=== PATIENT | female | born 1965 | race Caucasian/White ===

== ENCOUNTER → 2016-05-20 | Outpatient (CLI) | payer BC ==
[2016-05-20 09:49] LABS: FREE T4 (FREE THYROXINE) 0.72 ng/dL (0.93-1.71)
== END ==
LOC: LAB 07:17
PROVIDERS: ATTEND Family Medicine
DX: E06.3 Autoimmune thyroiditis (principal); E03.9 Hypothyroidism, unspecified
CPT/HCPCS: 36415; 84439; 84443; 84481

== ENCOUNTER 2016-06-23 13:45 | Observation (INO) | payer BC ==
[2016-06-23] MEDS ORDERED: MORPHINE SULFATE 4 MG/1 ML IVP ONE (13:59)
[2016-06-23] MEDS ORDERED: Sodium Chloride 0.9% 1,000 ML PRIMARY IV ONE (13:59)
[2016-06-23] MEDS ORDERED: ONDANSETRON 4 MG/2 ML VIAL IVP ONE (13:59)
[2016-06-23] MEDS ORDERED: NITROGLYCERIN 0.4 MG SL TAB (BOTTLE OF 3) SL ONE (14:01)
--- NOTE | 2016-06-23 14:05 | PDOC ---
Chest Pain HPI - General Chief Complaint: Chest Pain Stated Complaint: CHEST PAIN Date Seen by Provider: 06/23/16 Time Seen by Provider: 14:01 Source: Patient Exam Limitations: POSITIVE: No limitations Treatment Prior to Arrival: REPORTS: None Nurse's Notes Reviewed & Considered: Yes - History of Present Illness Initial Comments: Patient comes in today with chest pain. Patient reports she developed chest pain that she describes as pressure. This pressure was centered over her left substernal region, and is now radiating into her shoulder and neck. The pressure is though something heavy is sitting on her chest. She has associated shortness of breath. She denies any diaphoresis, no nausea vomiting or diarrhea , no fever chills or sweats. She states that her symptoms are worse with trying to move and be active, they do not resolve at this time when she rests. Body Location Affected: REPORTS: Chest Timing: REPORTS: Abrupt Duration: <24 hours Severity: Moderate Context: REPORTS: Activity Quality: REPORTS: Pressure Radiation: REPORTS: Jaw (L), Shoulder (L) Associated Symptoms: REPORTS: Shortness of Breath, Hurts to Breathe Modifying Factors: improves with: Rest Similar Symptoms Previously: No Recently seen/treated/hospitalized: No Any Prior Injuries Related to Current Complaint?: No - Patient Home Medications Home Medications: Home Medications Valacyclovir HCl [Valtrex] 1,000 mg PO BID #6 tab 09/25/14 Fenofibrate [Tricor] 145 mg PO DAILY #30 tab 08/15/15 Hydrochlorothiazide 25 mg PO DAILY #30 tab 09/17/15 Omeprazole 1 cap PO DAILY #90 cap 10/01/15 Gabapentin 1 cap PO as directed #360 cap 10/16/15 Acyclovir 2 tab PO QAM #60 tab 12/26/15 Quetiapine Fumarate [Seroquel] 200 mg PO QHS #60 tab 04/30/16 Oseltamivir Phosphate [Tamiflu] 75 mg PO DAILY #10 cap 05/05/16 Levothyroxine Sodium [Synthroid] 1 tab PO DAILY #30 tab 05/21/16 Venlafaxine HCl [Venlafaxine Hcl Er] 150 mg PO DAILY #30 cap 06/07/16 - Patient Allergies Allergies/Adverse Reactions: Allergies Allergy/AdvReac Type Severity Reaction Status Date / Time No Known Drug Allergies Allergy NOT Verified 06/23/16 13:59 APPLICABLE Past Medical History - heen HEENT History: Denies History Cardiovascular History: Denies History Respiratory History: Denies History Gastrointestinal History: Denies History, GERD Genitourinary History: Denies History Endocrine History: Other (please comment) Additional Endocrine History: MITESH'S THYROIDITIS Musculoskeletal History: Denies History Neurological History: Denies History, Motion Sickness Blood Disorders: Denies History Psychiatric History: Denies History, Depression Cancer History: Denies History History of MDRO: No Alcohol Use: Rarely Substance Use Type: None Previous Surgical History: Yes (tubal ligation) Significant Family History: No pertinent family hx, Hypertension ROS - Limitations ROS Limitations: No Limitations Constitution: REPORTS: Denies Symptoms Cardiovascular: REPORTS: Chest Pain Respiratory: REPORTS: Shortness Of Breath Neurological: REPORTS: Denies Neuro Symptoms Gastrointestinal: REPORTS: Denies GI Symptoms Endocrine: REPORTS: Denies Symptoms Musculoskeletal: REPORTS: Denies MS Symptoms Genitourinary: REPORTS: Denies Symptoms Eyes: REPORTS: Denies Symptoms ENT: REPORTS: Denies Symptoms Skin: REPORTS: Denies Skin Symptoms Lympathic: REPORTS: Denies Lympathic Symptoms Immunologic: POSITIVE: Denies Symptoms Psychiatric: POSITIVE: Denies Psych Symptoms Chest Pain PE - General Appearance General Appearance: REPORTS: Alert, Cooperative, No Evidence of Trauma, Mild Distress - HEENT HEENT: POSITIVE: Head Inspection Nml, Eyes Inspection Nml, Ears Inspection Nml, Nose Inspection Nml, Oral/Dental Inspect. Nml, Pharynx Inspect. Nml, PERRL, EOMI - Neck Neck: REPORTS: Normal Inspection - Respiratory Respiratory: REPORTS: No Respiratory Distress, Breath Sounds Normal, Chest Non- Tender - Cardiovascular Cardiovascular: REPORTS: Regular Rate and Rhythm, Heart Sounds Normal, No Murmur , No Gallop, No Friction Rub, No JVD - Abdomen Abdomen: Soft: (All Quadrants), Normal Bowel Sounds: (All Quadrants), Denies Tenderness: (All Quadrants) - Skin Skin: REPORTS: Intact, Normal For Race, Warm, Dry, No Rash - Extremities Extremity: Non-Tender: (All Extremities), Normal ROM: (All Extremities), Normal Inspection: (All Extremities) - Neurological / Psychological Neurological: POSITIVE: Affect Apporpriate, Oriented X3 Chest Pain Progress - Results Reviewed by me Xrays/CTs/US Reviewed by me: Yes Discussed with Radiologist: Yes Lab Results Reviewed: Yes Lab Results:: Laboratory Results 06/23/16 Range/Units 14:05 WBC 6.63 (4.8-10.8) 10^3/uL RBC 4.49 (4.20-5.40) 10^6/uL Hgb 10.7 L (12.0-16.0) g/dL Hct 34.1 L (37.0-47.0) % MCV 75.9 L (81-99) FL MCH 23.8 L (27-31) PG MCHC 31.4 L (33-37) g/dL RDW Std Deviation 45.0 (39-50) fL RDW Coeff of Gris 16.7 H (11.5-14.5) % Plt Count 415 H (140-350) 10*3/uL MPV 9.3 (7.4-12.2) FL Immature Gran % (Auto) 0.2 (0-5) % Neut % (Auto) 64.2 (50-80) % Lymph % (Auto) 23.4 (10-50) % [place] % (Auto) 9.0 (5-15) % Eos % (Auto) 2.6 (0-8) % Baso % (Auto) 0.6 (0-1) % Immature Gran # (Auto) 0.01 10*3/UL Neut # (Auto) 4.26 10*3/UL Lymph # (Auto) 1.55 10*3/uL [place] # (Auto) 0.60 (0.3-0.8) 10*3/UL Eos # (Auto) 0.17 10*3/UL Baso # (Auto) 0.04 10*3/UL WBC Morphology Comment Normal morphology (NORM) Plt Morphology Comment Normal morphology (NORM) RBC Morph Comment Normal morphology (NORM) PT 10.6 (9.7-11.4) secs INR 1.03 (0.00-5.90) N/A D-Dimer 0.26 (0.00-0.59) mg/L Sodium 136 (135-145) meq/L Potassium 3.4 L (3.8-5.2) meq/L Chloride 97 L (98-112) meq/L Carbon Dioxide 26 (23-33) meq/L Anion Gap 13 (5-20) BUN 21 (7-22) mg/dL Creatinine 1.2 (0.50-1.20) mg/dL Estimated GFR 48 (>60 ml/min/1.73m(2)) BUN/Creatinine Ratio 17.50 (6-20) Glucose 95 (78-110) mg/dL Calculated Osmolality 284.0 (267-292) mOsm/kg Calcium 9.3 (8.7-10.7) mg/dL Magnesium 2.1 (1.6-2.4) mg/dL Total Bilirubin 0.4 (0.3-1.2) mg/dL AST 51 H (8-39) IU/L ALT 35 (9-52) IU/L Alkaline Phosphatase 47 (38-126) IU/L Troponin I < 0.012 (< 0.040) ng/mL NT-Pro-B Natriuret Pep < 11.1 (0-125) PG/ML Total Protein 7.9 (6.1-8.0) g/dL Albumin 4.3 (3.5-4.8) g/dL Globulin 3.6 (2.50-4.10) g/dL Albumin/Globulin Ratio 1.10 L (1.3-2.0) mg/g TSH 0.028 L (0.2700-4.2000) uIU/mL Free T4 0.88 L (0.93-1.71) ng/dL EKG Interpretation:: POSITIVE: Normal Sinus Rhythm, Normal Rate, Normal Intervals, Normal [place], Normal QRS, Normal ST/T - Patient's Progress Pain Medication Addressed: POSITIVE: Yes Re-Examine Time: 15:12 Status: POSITIVE: Improved MDM / ED Course: Patient was brought back to the main emergency room, examined, an IV established , blood drawn and sent to the lab for studies, radiographic studies were obtained. Patient received sublingual nitroglycerin resulted in improvement of her chest pressure. She also received morphine sulfate, normal saline, and Zofran per her IV. She'll return of chest pain that she described as pressure received a second sublingual nitroglycerin resulted in improvement of her chest pressure. Findings: Chest x-ray is unremarkable. CBC shows anemia with a hemoglobin of 10.5. Comprehensive metabolic panel is unremarkable. D-dimer is normal. Troponin is less than 0.012. Assessment: Chest pain. Plan: admission for rule out OK. Quality Measure Initiative: CP/AMI: POSITIVE: EKG Quality Measure Initiative: CAP: POSITIVE: CXR or CT - Consult Consult (If Yes, Name of Consulting MD & Time Called): Yes (Dr. Maki) Consulting MD will see pt:: POSITIVE: [facility] [place] Ad[place] Counseled: POSITIVE: Patient, RE: Lab Results, RE: Radiology Results, RE: DX Patient Care Time - Estimated PCT Patient Care Time (In Minutes): 30 Vital Signs - VS Reviewed Vital Signs Reviewed: Yes Discharge Clinical Impression: Chest pain Discharge Disposition: Admit to Inpatient Condition: Stable Date Decision to Admit to Inpatient: 06/23/16 Time Decision to Admit to Inpatient: 15:11
[2016-06-23] MEDS: NITROGLYCERIN 0.4 MG SL TAB (BOTTLE OF 3) SL ONE ×2 (14:07→15:02)
[2016-06-23 14:11] LABS: BASOPHILS # (AUTO) 0.04 10*3/UL; BASOPHILS % (AUTO) 0.6 % (0-1); EOSINOPHILS # (AUTO) 0.17 10*3/UL; EOSINOPHILS % (AUTO) 2.6 % (0-8); HEMATOCRIT 34.1 % (37.0-47.0); HEMOGLOBIN 10.7 g/dL (12.0-16.0); LYMPHOCYTES # (AUTO) 1.55 10*3/uL; MEAN CORPUSCULAR HEMOGLOBIN 23.8 PG (27-31); MEAN CORPUSCULAR HGB CONC 31.4 g/dL (33-37); MEAN CORPUSCULAR VOLUME 75.9 FL (81-99); MEAN PLATELET VOLUME 9.3 FL (7.4-12.2); NEUTROPHILS # (AUTO) 4.26 10*3/UL; NEUTROPHILS % (AUTO) 64.2 % (50-80); RED BLOOD COUNT 4.49 10^6/uL (4.20-5.40)
[2016-06-23 14:12] LABS: PLATELET MORPHOLOGY COMMENT NORMAL MORPHOLOGY (NORM); RBC MORPHOLOGY COMMENT NORMAL MORPHOLOGY (NORM); WBC MORPHOLOGY COMMENT NORMAL MORPHOLOGY (NORM)
--- NOTE | 2016-06-23 14:23 | DI ---
AP CHEST X-RAY, 06/23/2016 2:01 PM : Clinical History: Chest pain. Previous Exam: 10/16/2014. There is no acute soft tissue or bony abnormality. Heart size is normal. Lungs are clear. Mediastinal structures are normal. There are no pulmonary nodules. Reading: Normal chest x-ray. There has been no interval change.
[2016-06-23 14:24] LABS: BUN/CREATININE RATIO 17.5 (6-20); CALCIUM 9.3 mg/dL (8.7-10.7); MAGNESIUM 2.1 mg/dL (1.6-2.4); SERUM ALBUMIN 4.3 g/dL (3.5-4.8)
[2016-06-23 14:51] LABS: FREE T4 (FREE THYROXINE) 0.88 ng/dL (0.93-1.71)
[2016-06-23] MEDS ORDERED: Belladon/PHENobarbital Elixir 10 ML, Lidocaine Viscous Liquid 2% 15 ML, Mag Hyd/Al Hyd/... PO ONE ×3 (15:02)
[2016-06-23] MEDS ORDERED: BELLADONNA ALKALOIDS/PHENOBARB 32.4 MG/10 ML PO ONE (15:05)
[2016-06-23] MEDS ORDERED: LIDOCAINE 2% VISCOUS(20 MG/1 ML) - 15 ML UD CUP PO ONE (15:05)
[2016-06-23] MEDS ORDERED: MAG HYDROX/AL HYDROX/SIMETH 30 ML SUSP PO ONE (15:05)
[2016-06-23] MEDS: ACETAMINOPHEN 500 MG TABLET PO ONE ×2 (15:25→16:45)
[2016-06-23] MEDS ORDERED: NORMAL SALINE 10 ML SYRINGE FLUSH IVP PRN (15:42)
[2016-06-23] MEDS ORDERED: CALCIUM CARBONATE 500 MG (TUMS) CHEWABLE TABLET PO PRN (15:42)
[2016-06-23] MEDS ORDERED: NITROGLYCERIN 0.4 MG SL TAB (BOTTLE OF 3) SL PRN (15:42)
[2016-06-23] MEDS ORDERED: LIDOCAINE W/ SODIUM BICARB 0.5 ML SYR SUBD PRN (15:42)
--- NOTE | 2016-06-23 16:57 | EKG ---
[address] [place] [address] Measurements Intervals [place] Rate: 60 P: 55 AR: 211 QRS: 56 QRSD: 100 T: 82 QT: 438 QTc: 439 Interpretive Statements SINUS RHYTHM WITH FIRST DEGREE AV BLOCK POSSIBLE RIGHT VENTRICULAR CONDUCTION DELAY [RSR (QR) IN V1/V2] NONSPECIFIC ST & T-WAVE ABNORMALITY Compared to ECG 11/28/2012 10:17:38 First degree AV block now present T-wave abnormality now present Electronically Signed On 06-24-16 08:12:09 MDT by Yakov Rollins MD [email or web address]
[2016-06-23] MEDS: HYDROcodone-APAP 5 MG -325 MG TABLET PO PRN (17:21)
[2016-06-23] MEDS: ONDANSETRON 4 MG/2 ML VIAL IVP PRN (17:21)
[2016-06-23] MEDS: IBUPROFEN 800 MG TABLET PO PRN (19:21)
[2016-06-23] MEDS: GABAPENTIN 300 MG CAPSULE PO SCH (20:16)
[2016-06-23] MEDS: QUEtiapine Tab 100 MG TAB PO SCH (20:17)
--- NOTE | 2016-06-23 20:55 | PDOC ---
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 She states she was getting ready for work. She had some shortness of breath but no vomiting with this she did feel nauseous. She stated the pain was substernal in location and radiated into the left shoulder. She's not had pain like this before. The patient had a normal d-dimer in the emergency room and EKG was normal, but the troponins were also negative. She does have some cholesterol problems, but negative family history for heart disease, does not smoke, does not have diabetes, and does not have hypertension. She has known thyroid disease as mentioned above and her TSH was found to be suppressed today however her free T4 was also low. She has gone from Localler to Synthroid recently. Past Medical History Medical History: 1. Garret's thyroiditis. 2. Hypercholesterolemia. 3. Insomnia. 4. GERD with esophagitis Surgical History: 1. Thyroid nodule fine-needle aspiration. 2. Breast reduction surgery. 3. EGD done in 2011. Some mild esophagitis noted. Tobacco Use: Never Smoker Substance Use Type: None Alcohol Use: None Medication / Allergies Home Medications: Home Medications Medication Instructions Recorded Confirmed Type Valacyclovir HCl [Valtrex] 1,000 mg PO BID #6 tab 09/25/14 06/23/16 Clinic Fenofibrate [Tricor] 145 mg PO DAILY #30 tab 08/15/15 06/23/16 Clinic Hydrochlorothiazide 25 mg PO DAILY #30 tab 09/17/15 06/23/16 Clinic Omeprazole 1 cap PO DAILY #90 cap 10/01/15 06/23/16 Clinic Gabapentin 1 cap PO as directed #360 cap 10/16/15 06/23/16 Clinic Acyclovir 2 tab PO QAM #60 tab 12/26/15 06/23/16 Clinic Quetiapine Fumarate [Seroquel] 200 mg PO QHS #60 tab 04/30/16 06/23/16 Clinic Levothyroxine Sodium [Synthroid] 1 tab PO DAILY #30 tab 05/21/16 06/23/16 Clinic Venlafaxine HCl [Venlafaxine Hcl 150 mg PO DAILY #30 cap 06/07/16 06/23/16 Clinic Er] Allergies/Adverse Reactions: Allergies Allergy/AdvReac Type Severity Reaction Status Date / Time No Known Drug Allergies Allergy NOT Verified 06/23/16 18:31 APPLICABLE Review of Systems - Review of Systems All Systems: Reviewed & No Additional Complaints Except as Stated (I did a 12 point review systems and it was negative other than that discussed in history present illness and then noted below.) - Constitutional Constitutional: DENIES: Negative System Review, General Health Excellent, General Health Good, General Health Fair, General Health Poor, Weight Loss, Weight Gain, Weight Change Intentional, Fever/Chills, Night Sweats, Fatigue, Diffuse Arthralgias, Diffuse Myalgias, Malaise, Weakness, Recent Illness, Other , See HPI - Respiratory Respiratory: DENIES: Negative System Review, Cough, Sputum, Dyspnea At Rest, Dyspnea with Exertion, Pleuritic Pain, Hemoptysis, Wheezing, Other, See HPI - Gastrointestinal Gastrointestinal / Abdominal: REPORTS: Nausea - Musculoskeletal Musculoskeletal: DENIES: Negative System Review, Back Pain, Neck Pain, Swelling , Calf Pain, Muscle Pain, Cramping, Joint Pain - Hands, Joint Pain - Elbows, Joint Pain - Shoulders, Joint Pain - Hips, Joint Pain - Knees, Joint Pain - Feet , AM Stiffness, Other, See HPI - Neurological Neurologic: REPORTS: Headache (Today, so by the nitroglycerin) Exam - Vitals Vital Signs: Vital Signs Vital Signs - Last Taken Temperature 97.8 F 06/23/16 20:55 Pulse Rate 61 06/23/16 20:55 Respiratory Rate 14 06/23/16 20:55 Blood Pressure 134/77 06/23/16 20:55 Pulse Ox 95 06/23/16 20:55 - General General Appearance: POSITIVE: No Acute Distress, Cooperative - Head Head Exam: POSITIVE: Normal Inspection, Normocephalic, Atraumatic - Eye Eye Exam: POSITIVE: EOMI, No Scleral Icterus - ENT ENT Exam: POSITIVE: Mucous Membranes Moist - Neck Neck Exam: POSITIVE: Normal Inspection, No Tenderness, No Thyromegaly - Respiratory Respiratory Exam: POSITIVE: Clear to Auscultation - Bilaterally, Breathing Non Labored, Normal to Percussion and Palpation - Cardiovascular Cardiovascular Exam: POSITIVE: RRR, No Murmur, No Clicks, No Gallops, No Rubs, No JVD - GI/Abdominal GI/Abdominal Exam: POSITIVE: Normal Bowel Sounds, Non Tender, Non Distended, Soft - Rectal Rectal Exam: POSITIVE: Deferred - External Exam: POSITIVE: Deferred Exam: POSITIVE: Deferred - Extremities Extremities Exam: POSITIVE: No Clubbing Present, No Edema Present, No Cyanosis Present - Back Back Exam: POSITIVE: Normal Inspection, No CVA Tenderness - Neurological Neurological Exam: POSITIVE: Alert, Oriented x 3, No Facial Droop, Speech Intact / Clear, Moves All Extremities Equally - Psychiatric Psychiatric Exam: POSITIVE: Normal Affect, Normal Mood - Integumentary Integumentary Exam: POSITIVE: Normal Color, Warm, Dry, Intact Results - Labs CBC and BMP: 06/23/16 14:05 06/23/16 14:05 Labs - Last 24 Hours: Laboratory Results 06/23/16 Range/Units 14:05 WBC 6.63 (4.8-10.8) 10^3/uL RBC 4.49 (4.20-5.40) 10^6/uL Hgb 10.7 L (12.0-16.0) g/dL Hct 34.1 L (37.0-47.0) % MCV 75.9 L (81-99) FL MCH 23.8 L (27-31) PG MCHC 31.4 L (33-37) g/dL RDW Std Deviation 45.0 (39-50) fL RDW Coeff of Gris 16.7 H (11.5-14.5) % Plt Count 415 H (140-350) 10*3/uL MPV 9.3 (7.4-12.2) FL Immature Gran % (Auto) 0.2 (0-5) % Neut % (Auto) 64.2 (50-80) % Lymph % (Auto) 23.4 (10-50) % [place] % (Auto) 9.0 (5-15) % Eos % (Auto) 2.6 (0-8) % Baso % (Auto) 0.6 (0-1) % Immature Gran # (Auto) 0.01 10*3/UL Neut # (Auto) 4.26 10*3/UL Lymph # (Auto) 1.55 10*3/uL [place] # (Auto) 0.60 (0.3-0.8) 10*3/UL Eos # (Auto) 0.17 10*3/UL Baso # (Auto) 0.04 10*3/UL WBC Morphology Comment Normal morphology (NORM) Plt Morphology Comment Normal morphology (NORM) RBC Morph Comment Normal morphology (NORM) PT 10.6 (9.7-11.4) secs INR 1.03 (0.00-5.90) N/A D-Dimer 0.26 (0.00-0.59) mg/L Sodium 136 (135-145) meq/L Potassium 3.4 L (3.8-5.2) meq/L Chloride 97 L (98-112) meq/L Carbon Dioxide 26 (23-33) meq/L Anion Gap 13 (5-20) BUN 21 (7-22) mg/dL Creatinine 1.2 (0.50-1.20) mg/dL Estimated GFR 48 (>60 ml/min/1.73m(2)) BUN/Creatinine Ratio 17.50 (6-20) Glucose 95 (78-110) mg/dL Calculated Osmolality 284.0 (267-292) mOsm/kg Calcium 9.3 (8.7-10.7) mg/dL Magnesium 2.1 (1.6-2.4) mg/dL Total Bilirubin 0.4 (0.3-1.2) mg/dL AST 51 H (8-39) IU/L ALT 35 (9-52) IU/L Alkaline Phosphatase 47 (38-126) IU/L Troponin I < 0.012 (< 0.040) ng/mL NT-Pro-B Natriuret Pep < 11.1 (0-125) PG/ML Total Protein 7.9 (6.1-8.0) g/dL Albumin 4.3 (3.5-4.8) g/dL Globulin 3.6 (2.50-4.10) g/dL Albumin/Globulin Ratio 1.10 L (1.3-2.0) mg/g TSH 0.028 L (0.2700-4.2000) uIU/mL Free T4 0.88 L (0.93-1.71) ng/dL - EKG Data -: EKG Interpreted by Me Rate: Normal EKG Shows Normal: Sinus Rhythm - EKG Data EKG Interpretation: Other (First-degree AV block) - Imaging Status: Image Reviewed by Me (Chest x-ray appears negative for pneumonia on my view.) Assessment and Plan - Patient Problems (1) Chest pain Current Visit: Yes Status: Acute (2) Garret's thyroiditis Current Visit: Yes Status: Acute (3) Hyperlipidemia Current Visit: Yes Status: Acute Qualifiers: Hyperlipidemia type: mixed hyperlipidemia Qualified Description: Mixed hyperlipidemia Qualifier Code(s): (E78.2) Mixed hyperlipidemia (4) Insomnia Current Visit: Yes Status: Acute (5) Microcytic anemia Current Visit: Yes Status: Acute - Assessment / Plan Additional Assessment/Plan Details: Plan: 1. Do serial enzymes and EKG if necessary 2. Aspirin/beta marychuy/Lovenox, if indicated. 3. We'll have the patient do a stress test treadmill 4. Proton pump inhibitor 5. Nitroglycerin when necessary for chest pain 6. Morphine if necessary via IV 7. Oxygen if necessary 8. If testing indicates further need for evaluation, discussion with cardiology. If testing is negative for myocardial infarction and no further indication for coronary artery disease, consider outpatient workup for GI source , pulmonary source, or other 9. Given the patient's thyroid dysfunction, I think it would be best to get her in with an ceramic engineering professor and I'll try to make those arrangements tomorrow as the patient has what appears to be hyperthyroidism with a suppressed TSH, but elevated T3 and a suppressed free T4. 10. CT scan to look for pulmonary emboli. 11. Try to keep patient on same medications at home including melatonin for sleep. 12. For the anemia, I think we should start with an iron panel, we need to discuss further in terms of needing a GI workup and also potentially an mainspring winder workup. Could be abnormal uterine bleeding. Has known esophagitis , but does not report any black or tarry stools or blood in the stool. She is at age 51 and does require a screening colonoscopy and I think we should plan that for sooner rather than later once we can get the thyroid issues under control. I don't know if doing a colonoscopy would put her at risk for thyroid storm. Photo / Body Diagrams - Uploaded Photos Uploaded Photos:
[2016-06-23] MEDS ORDERED: VALACYCLOVIR HCL 1000 MG PO SCH (21:00)
[2016-06-23] MEDS: MELATONIN 10 MG PO SCH (21:52)
--- NOTE | 2016-06-23 23:02 | DI ---
HISTORY: Chest pain. TECHNIQUE: Contiguous axial images of the chest were obtained and submitted for interpretation. FINDINGS: No main or segmental pulmonary emboli. There is bibasilar atelectasis versus scar. No pneumothorax, pleural effusion, or area of consolidati on. There is a 9 mm pulmonary nodule in the anterior left upper lobe. Airways are patent with no en dobronchial lesion. No evidence of great vessel injury, dissection, or aneurysm. Incidental note is made of origin of th e left vertebral artery from the aortic arch. Heart size is normal with no pericardial effusion. No mediastinal or hilar lymphadenopathy. The thyroid exhibits normal CT morphology. Limited evaluat ion of the upper abdomen reveals a calcification along the anterior margin of the liver. No acute osseous abnormality or aggressive osseous lesion. There is multilevel degenerative disc dise ase. IMPRESSION: 1. No CT evidence of acute cardiopulmonary pathology. 2. Anterior left upper lobe 9 mm pulmonary nodule. Follow-up is recommended according to the Fleisc hner criteria.
[2016-06-24] MEDS: IBUPROFEN 800 MG TABLET PO PRN ×2 (04:52→15:44)
[2016-06-24 05:20] LABS: CHOL/HDL RATIO 2.92 RATIO (0-4.0); LDL CHOLESTEROL,CALCULATED 88.2 mg/dL
[2016-06-24] MEDS ORDERED: OMEPRAZOLE 20 MG CAPSULE PO SCH (07:00)
[2016-06-24] MEDS ORDERED: FENOFIBRATE 145 MG TABLET PO SCH (09:00)
--- NOTE | 2016-06-24 10:06 | STRESSTEST ---
[facility] Interpretive Statements This is a 51 YO female that had presented with chest pain, ruled out for NE. No risk factors for heart disease aside from cholesterol, does not smoke. Exercised in Yasir protocol to 10:33, and noted some non specific findings on ST segments, normal BP response to exercise, and no issues in recovery. Findings appear non ischemic. However, HR did not reach 85% of maximum predicted HR, so test is not technically diagnostic. Plan: proceed with Cleo scan stress test. Electronically Signed On 06-25-16 09:56:19 MDT by Yakov Rollins MD [email or web address]
[2016-06-24] MEDS: GABAPENTIN 300 MG CAPSULE PO SCH ×3 (10:28→20:24)
[2016-06-24] MEDS: VENLAFAXINE XR 75 MG CAP PO SCH (10:29)
[2016-06-24] MEDS: OMEPRAZOLE 20 MG CAPSULE PO SCH (10:31)
[2016-06-24] MEDS: ACYCLOVIR 800 MG PO SCH (10:58)
--- NOTE | 2016-06-24 15:02 | PDOC(PROG) ---
Date and Time of Service: 06/24/2016, 1455 Interval History: Very low-grade chest pain, significantly improved from yesterday. No shortness breath and no nausea or vomiting. We did do a treadmill stress test (exercise stress test) earlier today but that was nondiagnostic without reaching a maximum heart rate. We are proceeding with a nuclear chemical stress test. Objective : Data - Labs CBC and BMP: 06/23/16 14:05 06/23/16 14:05 Labs - Last 24 Hours: Laboratory Results 06/24/16 Range/Units 04:44 Troponin I < 0.012 (< 0.040) ng/mL Triglycerides 79 (44-200) mg/dL Cholesterol 158 (120-200) mg/dL LDL Cholesterol, Calc 88.200 mg/dL VLDL Cholesterol 15 (0-40) mg/dL HDL Cholesterol 54 (40-150) mg/dL Cholesterol/HDL Ratio 2.92 (0-4.0) RATIO - Imaging CT Scan Status: Image Reviewed by Me (I saw damage of the chest CT scan, and there is a nodule in the left upper lobe of the lung very close to the periphery. No evidence of pneumonia. The radiologist felt it was negative for pulmonary emboli.) Objective : Exam - General General Appearance: No Acute Distress, Cooperative Additional General Exam Details: Vital Signs - Last Taken Temperature 97 F 06/24/16 11:20 Pulse Rate 68 06/24/16 11:20 Respiratory Rate 17 06/24/16 11:20 Blood Pressure 111/79 06/24/16 11:20 Pulse Ox 95 06/24/16 11:20 On room air., - Eye Eye Exam: No Scleral Icterus - ENT ENT Exam: Mucous Membranes Moist - Neck Neck Exam: Normal Inspection, No Tenderness, No Thyromegaly - Respiratory Respiratory Exam: Clear to Auscultation - Bilaterally, Breathing Non Labored - Cardiovascular Cardiovascular Exam: RRR, No Murmur, No Clicks, No Gallops, No Rubs, No JVD - GI/Abdominal GI/Abdominal Exam: Normal Bowel Sounds, Non Tender, Non Distended, Soft - Extremities Extremities Exam: No Clubbing Present, No Edema Present, No Cyanosis Present - Neurological Neurological Exam: Alert, Oriented x 3, No Facial Droop, Speech Intact / Clear, Moves All Extremities Equally - Psychiatric Psychiatric Exam: Normal Affect, Normal Mood Assessment and Plan - Patient Problems (1) Chest pain Current Visit: Yes Status: Acute (2) Incidental lung nodule, greater than or equal to 8mm Current Visit: Yes Status: Acute (3) Garret's thyroiditis Current Visit: Yes Status: Acute (4) Insomnia Current Visit: Yes Status: Acute (5) Microcytic anemia Current Visit: Yes Status: Acute (6) Hyperlipidemia Current Visit: Yes Status: Resolved Qualifiers: Hyperlipidemia type: mixed hyperlipidemia Qualified Description: Mixed hyperlipidemia Qualifier Code(s): (E78.2) Mixed hyperlipidemia - Assessment / Plan Additional Assessment/Plan Details: This is a very complex chest pain admission. Unfortunately, the patient fatigued on the treadmill and we were not able to get the patient to 85% of maximum predicted heart rate. It is a nondiagnostic study. We will proceed with a chemical stress test with the resting images done today and stress images tomorrow. In terms of the thyroid, I spoke with health lead Dr. Mcdonough. He is in [place]. He stated that given the findings of the suppressed TSH and free T4, he suspected the patient may be on either T3 dosing or this could be residual from [place] Thyroid. The [place] Thyroid was switched to Synthroid about a month ago. Given that, he recommended continuing off of all medications and considering propranolol should there be any palpitation issues until the patient can have a thyroid uptake scan in 6-8 weeks. At that time, the patient will then determine whether or not she will proceed with surgery versus medication versus radioablation for therapy for this Garret's thyroiditis. The cholesterol is very well controlled and triglycerides are normal so we'll stop TriCor at this time. The patient had an incidental lung nodule on her CT scan of her chest, so at this time we will try to get her set up with oncology here in [place] to review this lung nodule and see whether or not a PET scan should be done. She seems to be low risk having not smoked in the past. Some secondhand smoke exposure growing up. The above was discussed with the patient, her , and her mother and sister , at bedside and they all agreed with the plan. Photo / Body Diagrams - Uploaded Photos Uploaded Photos:
[2016-06-24] MEDS: QUEtiapine Tab 100 MG TAB PO SCH (20:24)
[2016-06-24] MEDS: MELATONIN 10 MG PO SCH (20:25)
[2016-06-25 04:24] VITALS: RESP 16
--- NOTE | 2016-06-25 08:51 | STRESSTEST ---
[facility] Interpretive Statements This is a 51 YO female with a history of high cholesterol, chest pain, no other risk factors, who had a non diagnostic exercise treadmill stress test. Cleo scan being done, with rest images done yesterday, stress images taking place today. Has possible first degree AV block on EKG at rest. Stress today and patient had shortness of breath, jaw pain. Resolved with completion of test. Plan: images and review radiology report of stress test. [email or web address]
[2016-06-25] MEDS: ACYCLOVIR 800 MG PO SCH (09:18)
[2016-06-25] MEDS: OMEPRAZOLE 20 MG CAPSULE PO SCH (09:19)
[2016-06-25] MEDS: GABAPENTIN 300 MG CAPSULE PO SCH ×2 (09:19→12:54)
[2016-06-25] MEDS: VENLAFAXINE XR 75 MG CAP PO SCH (09:19)
[2016-06-25] MEDS: IBUPROFEN 800 MG TABLET PO PRN (09:54)
[2016-06-25] MEDS ORDERED: ONDANSETRON 4 MG/2 ML VIAL IVP ONE (09:56)
[2016-06-25] MEDS: ONDANSETRON 4 MG/2 ML VIAL IVP PRN (09:59)
[2016-06-25] MEDS: HYDROcodone-APAP 5 MG -325 MG TABLET PO PRN (10:42)
[2016-06-25] MEDS ORDERED: SUMAtriptan Succinate 6 MG/0.5 ML SUBCUT ONE ×2 (12:24→12:41)
[2016-06-25 12:25] VITALS: TEMP 97.7
[2016-06-25] MEDS ORDERED: Prochlorperazine Edisylate Inj 10mg/2ml vial IVP ONE (12:25)
--- NOTE | 2016-06-25 13:26 | DI ---
2 DAY LEXISCAN STRESS & REST MYOCARDIAL PERFUSION SCANS, 06/24/2016-06/25/2016: Clinical History: Chest pain. The patient had a nondiagnostic treadmill stress test. Previous Exam: None at this facility. Monitoring Physician: Dr. Pablo Howard. Dose: Stress dose: 34 mCi on 06/25/2013. Rest dose: 33 mCi on 06/25/2013. Quantitative Analysis: DragonRAD program with low dose limited CT chest scan attenuation correctio n. Exam Quality: Excellent for the stress test and very good for the resting test. Rejected Beats: Stres s = 2%; Rest = 10%. HR: Stress = 65-68 b/m; Rest = 64 b/m. Left ventricular chamber sizes are normal at stress and rest. Transient ischemic dilatation ratio is 1.02 (normal Yasir TID <= 1.22; normal Lexiscan TID <= 1.33). Stress LVEF: 82%; rest LVEF: 78%. The n on-attenuated and the attenuated corrected scans show no significant abnormal perfusion, wall motion, or myocardial thickening in either at stress or rest. Limited CT scans of the heart show no coronary artery calcifications. The previously noted 9 mm noncalcified nodule in the anterior segment of the left upper lobe is again identified. Readin. Normal stress and rest left ventricular chamber size. Transient ischemic dilatation ratio is 1.02 . 2. Stress and rest LVEF values are 82%, and 78%, respectively. 3. Normal stress and rest myocardial perfusion, wall motion, and thickness. 4. No coronary artery calcifications are identified. There is a 9 mm noncalcified nodule located in the in tear segment of the left upper lobe just deep to the anterior chest wall.
--- NOTE | 2016-06-25 14:29 | DCSUMMARY ---
Hospitalization Summary Admit Date: 06/23/16 Discharge Date: 06/25/16 Primary Diagnosis:: chest pain, probably secondary to thyroid dysfunction Hospital Course: This very pleasant 51-year-old female with Garret's thyroiditis, hyperlipidemia, and insomnia issues that presented with chest pain. It was radiating to the left side. We tried to do a treadmill stress test after the patient ruled out for myocardial infarction, but were not able to get a diagnostic study. We did a Lexiscan nuclear stress test, and found that it was a normal study. There was no evidence of coronary artery disease and no coronary artery calcifications. The thyroid function is abnormal. I do want to note that the chest pain resolved, but in terms of the thyroid function, we noted that the TSH was suppressed, free T4 suppressed, but the T3 level is elevated. This could be because of the switch from [place] Thyroid to Synthroid a month ago. Either way , it appears that either there is too much thyroid replacement or that there could be some activity to the Garret's thyroiditis still present. We have arranged an endocrinology appointment for the patient to follow up on these thyroid issues. I did do a CT scan to make sure there is no pulmonary emboli and found an incidental pulmonary nodule in the left upper lobe. I will have the patient visit with an oncologist regarding a PET scan for this nodule, and also a repeat CT scan to be done in 3 months. The oncology office will call the patient directly. Patient was noted to have microcytic anemia, and although her iron level is normal it is low normal iron. This could be from a variety of reasons, but I feel that it is most appropriate to have the patient do a well woman exam with Pap smear and endometrial biopsy or imaging if necessary, and also to arrange a screening colonoscopy. We have appointments arranged with cancer genetics assistant and commissioner public works and also a general surgeon. Given the resolution of pain, these findings above, patient having no chest pains, no short is breath, no nausea or vomiting, headache after stress test relieved with Imitrex and Compazine, the patient will be discharged home. Assessment and Plan: 1. As per discharge assessments noted 2. Disposition: Patient is discharged home. 3. Condition on discharge, stable and improved. 4. Diet: regular diet 5. Activities: resume normal activities 6. Follow-Up: 1. As discussed above, primary care provider, surgery, COOLER SERVICER, and endocrinology. 2. 7. Medications at the Time of Discharge: Home Medications Medication Instructions Recorded Confirmed Type Valacyclovir HCl [Valtrex] 1,000 mg PO BID #6 tab 09/25/14 06/23/16 Clinic Hydrochlorothiazide 25 mg PO DAILY #30 tab 09/17/15 06/23/16 [facility] Omeprazole 1 cap PO DAILY #90 cap 10/01/15 06/23/16 Clinic Gabapentin 1 cap PO as directed #360 cap 10/16/15 06/23/16 [facility] Acyclovir 2 tab PO QAM #60 tab 12/26/15 06/23/16 [facility] Quetiapine Fumarate [Seroquel] 200 mg PO QHS #60 tab 04/30/16 06/23/16 Clinic Venlafaxine HCl [Venlafaxine HCl 150 mg PO DAILY #30 cap 06/07/16 06/23/16 Clinic ER] 8. Time, care, counseling and coordination of care for this discharge is greater than 30 minutes. Exam - Vitals Vital Signs: Vital Signs Temperature 97.7 F Temperature Source Temporal Artery Scan Pulse Rate [Apical] 66 Pulse Rate [Pulse Oximeter 63 Right] Pulse Rate 67 Respiratory Rate 16 Blood Pressure [Right Arm] 116/66 Blood Pressure 94/63 Pulse Ox 98 Oxygen Flow Rate 1 Oxygen Delivery Method Room Air Height 5 ft 8 in Weight 191 lb - General General Appearance: POSITIVE: No Acute Distress, Cooperative - Head Head Exam: POSITIVE: Atraumatic - Eye Eye Exam: POSITIVE: No Scleral Icterus - Respiratory Respiratory Exam: POSITIVE: Clear to Auscultation - Bilaterally, Breathing Non Labored - Cardiovascular Cardiovascular Exam: POSITIVE: RRR, No Murmur, No Clicks, No Gallops, No Rubs, No JVD - GI/Abdominal GI/Abdominal Exam: POSITIVE: Normal Bowel Sounds, Non Tender, Non Distended, Soft - Extremities Extremities Exam: POSITIVE: No Clubbing Present, No Edema Present, No Cyanosis Present - Neurological Neurological Exam: POSITIVE: Alert, Oriented x 3, No Facial Droop, Speech Intact / Clear, Moves All Extremities Equally - Psychiatric Psychiatric Exam: POSITIVE: Normal Affect, Normal Mood Data Perinent Studies: Laboratory Results 06/23/16 06/24/16 Range/Units 14:05 04:44 WBC 6.63 (4.8-10.8) 10^3/uL RBC 4.49 (4.20-5.40) 10^6/uL Hgb 10.7 L (12.0-16.0) g/dL Hct 34.1 L (37.0-47.0) % MCV 75.9 L (81-99) FL MCH 23.8 L (27-31) PG MCHC 31.4 L (33-37) g/dL RDW Std Deviation 45.0 (39-50) fL RDW Coeff of Gris 16.7 H (11.5-14.5) % Plt Count 415 H (140-350) 10*3/uL MPV 9.3 (7.4-12.2) FL Immature Gran % (Auto) 0.2 (0-5) % Neut % (Auto) 64.2 (50-80) % Lymph % (Auto) 23.4 (10-50) % Ferry % (Auto) 9.0 (5-15) % Eos % (Auto) 2.6 (0-8) % Baso % (Auto) 0.6 (0-1) % Immature Gran # (Auto) 0.01 10*3/UL Neut # (Auto) 4.26 10*3/UL Lymph # (Auto) 1.55 10*3/uL Ferry # (Auto) 0.60 (0.3-0.8) 10*3/UL Eos # (Auto) 0.17 10*3/UL Baso # (Auto) 0.04 10*3/UL WBC Morphology Comment Normal morphology (NORM) Plt Morphology Comment Normal morphology (NORM) RBC Morph Comment Normal morphology (NORM) PT 10.6 (9.7-11.4) secs INR 1.03 (0.00-5.90) N/A D-Dimer 0.26 (0.00-0.59) mg/L Sodium 136 (135-145) meq/L Potassium 3.4 L (3.8-5.2) meq/L Chloride 97 L (98-112) meq/L Carbon Dioxide 26 (23-33) meq/L Anion Gap 13 (5-20) BUN 21 (7-22) mg/dL Creatinine 1.2 (0.50-1.20) mg/dL Estimated GFR 48 (>60 ml/min/1.73m(2)) BUN/Creatinine Ratio 17.50 (6-20) Glucose 95 (78-110) mg/dL Calculated Osmolality 284.0 (267-292) mOsm/kg Calcium 9.3 (8.7-10.7) mg/dL Magnesium 2.1 (1.6-2.4) mg/dL Iron 48 (37-170) UG/DL TIBC 425 (265-497) ug/dL % Saturation 11.29 L (14-50) % Total Bilirubin 0.4 (0.3-1.2) mg/dL AST 51 H (8-39) IU/L ALT 35 (9-52) IU/L Alkaline Phosphatase 47 (38-126) IU/L Troponin I < 0.012 < 0.012 (< 0.040) ng/mL NT-Pro-B Natriuret Pep < 11.1 (0-125) PG/ML Total Protein 7.9 (6.1-8.0) g/dL Albumin 4.3 (3.5-4.8) g/dL Globulin 3.6 (2.50-4.10) g/dL Albumin/Globulin Ratio 1.10 L (1.3-2.0) mg/g Triglycerides 79 (44-200) mg/dL Cholesterol 158 (120-200) mg/dL LDL Cholesterol, Calc 88.200 mg/dL VLDL Cholesterol 15 (0-40) mg/dL HDL Cholesterol 54 (40-150) mg/dL Cholesterol/HDL Ratio 2.92 (0-4.0) RATIO TSH 0.028 L (0.2700-4.2000) uIU/mL Free T4 0.88 L (0.93-1.71) ng/dL Patient Problems - Patient Problem List (1) Chest pain Current Visit: Yes Status: Acute (2) Incidental lung nodule, greater than or equal to 8mm Current Visit: Yes Status: Acute (3) Garret's thyroiditis Current Visit: Yes Status: Acute (4) Insomnia Current Visit: Yes Status: Acute (5) Microcytic anemia Current Visit: Yes Status: Acute
== END 2016-06-25 14:34 | disposition home or self-care (01) ==
LOC: ER 13:45 → MED/SURG 15:27
PROVIDERS: ADMIT Family Medicine; ATTEND Family Medicine
DX: R07.9 Chest pain, unspecified (principal); E06.3 Autoimmune thyroiditis; E78.5 Hyperlipidemia, unspecified; G47.00 Insomnia, unspecified; D50.9 Iron deficiency anemia, unspecified
CPT/HCPCS: 36415; 71010; 71275; 78452; 80053; 80061; 83540; 83550; 83735; 83880; 84439; 84443; 84484 ×2; 85025; 85379; 85610; 93005; 93010; 93016; 93017; 93018; 94761 ×3; 96372; 96374 ×2; 96375 ×2; 99284 ×2; A9500; J2785; J0780; J2270; J2405; J3030; J7030

== ENCOUNTER → 2016-07-14 | Outpatient (CLI) | payer BC ==
[2016-07-14 16:33] LABS: FREE T4 (FREE THYROXINE) 0.73 ng/dL (0.93-1.71)
[2016-07-19 14:06] LABS: THYROID STIMULATING IMMUNO <1.0 TSI index (<=1.3)
== END ==
LOC: LAB 15:42
PROVIDERS: ATTEND Student in an Organized Health Care Education/Training Program
DX: E06.3 Autoimmune thyroiditis (principal)
CPT/HCPCS: 36415; 83519; 84439; 84443; 84445

== ENCOUNTER → 2016-09-17 | Outpatient (CLI) | payer BC ==
[2016-09-17 13:41] LABS: FREE T4 (FREE THYROXINE) 0.74 ng/dL (0.93-1.71)
== END ==
LOC: LAB 12:26
PROVIDERS: ATTEND Student in an Organized Health Care Education/Training Program
DX: E06.3 Autoimmune thyroiditis (principal); Z98.890 Other specified postprocedural states
CPT/HCPCS: 36415; 82310; 84439; 84443

== ENCOUNTER → 2016-09-28 | Outpatient (CLI) | payer BC | LOC: LAB 16:11 | PROVIDERS: ATTEND Internal Medicine | DX: Z01.812 Encounter for preprocedural laboratory examination (principal); R91.8 Other nonspecific abnormal finding of lung field | CPT/HCPCS: 36415; 82565; 84520 ==

== ENCOUNTER → 2016-09-29 | Outpatient (CLI) | payer BC ==
--- NOTE | 2016-09-29 08:05 | DI ---
CT CHEST SCAN WITH IV CONTRAST, 09/29/2016 6:41 AM : Clinical History: Followup of a left upper lobe nodule measuring 8-9 mm. The patient is status post r ecent thyroidectomy. Previous Exam: 06/23/2016. Scans are performed from the base of the neck to the level of the adrenal glands with contrast. 65 ml of Isovue 300 was injected IV. The base of the neck and thoracic inlet are normal. The thyroid gland is no longer visible consistent with the history of a previous thyroidectomy. There are no abnormal axillary, supraclavicular, media stinal, or hilar nodes. The heart is normal. The previous study revealed an 8-9 mm noncalcified nodul e located in the anterior segment of the left upper lobe that is almost contiguous with the pleura. O n the current study, there is now a 2-3 mm nodule at the same location. This would indicate that we w ere dealing with an inflammatory process rather than a neoplastic lesion. There is a 3-4 mm noncalcif ied nodule located in the posterior sulcus of the left lower lobe, probably in the lateral basal segm ent or posterior basal segment. This was present on the prior study and has not changed. There is an even smaller noncalcified nodule located roughly 15 mm anteriorly and laterally to this small lesion. Both of these lesions were present before and have not changed. There is a pleural-based 2-3 mm nonc alcified nodule along the anterior aspect of the minor fissure on the side of the right upper lobe th at has not changed. A new 3 x 5 x 5 mm pleural based nodule has developed posteriorly in the superior segment of the right lower lobe approximately in the mid clavicular line. This was not present on th e last exam. There are no new infiltrates or effusions. Both adrenal glands, the spleen, and the visu alized portions of the liver and pancreas are normal. READIN. The 8-9 mm noncalcified lesion that was in proximity to the anterior pleura of the anterior segme nt of the left upper lobe has decreased in size from 8-9 mm to the lesion that is 2-3 mm virtually el iminating the likelihood that the lesion represents a tumor. It more likely represented a focus of in flammation. There is a new pleural-based noncalcified lesion measuring 5 mm in diameter by 3 mm in he ight located posteriorly in the superior segment of the right lower lobe. There are 2 small noncalcif ied lesions in the posterior sulcus of the left lower lobe and another pleural-based noncalcified nod ule along the anterior portion of the minor fissure originating from the anterior segment of the righ t upper lobe that have not changed since the prior exam. Because all of these lesions are pleural-bas ed, they most likely represent postinflammatory nodules. There is no hilar, mediastinal, supraclavicu lar, or axillary adenopathy. 2. The recently released 2017 Fleischner Society guidelines for followup of multiple nodules less th an or equal to 6 mm in diameter in a patient without known cancer or without a history of smoking is without no followup is required at all if the lesions were discovered as an incidental finding. If th e background of the patient is clinically suspicious, then a followup study would be indicated in 12 months from the original exam. 3. The remainder of the examination is normal.
== END ==
LOC: CT 06:37
PROVIDERS: ATTEND Internal Medicine
DX: R91.8 Other nonspecific abnormal finding of lung field (principal)
CPT/HCPCS: 71260

== ENCOUNTER → 2016-10-18 | Outpatient (CLI) | payer BC ==
[2016-10-18 13:15] LABS: FREE T4 (FREE THYROXINE) 0.49 ng/dL (0.93-1.71)
== END ==
LOC: LAB 12:04
PROVIDERS: ATTEND Student in an Organized Health Care Education/Training Program
DX: E05.90 Thyrotoxicosis, unspecified without thyrotoxic crisis or storm (principal); E06.3 Autoimmune thyroiditis
CPT/HCPCS: 36415; 84439; 84443; 84481

== ENCOUNTER → 2016-10-19 | Outpatient (CLI) | payer BC ==
[2016-10-19 12:28] LABS: BILIRUBIN,URINE NEGATIVE (NEG); CLARITY,URINE CLEAR (CLEAR); COLOR,URINE YELLOW; GLUCOSE, URINE (UA) NEGATIVE (NEG); NITRATE,URINE NEGATIVE (NEG); OCCULT BLOOD,URINE NEGATIVE (NEG); PROTEIN,URINE NEGATIVE (NEG); UROBILINOGEN,URINE 0.2 mg/dL (0.2)
[2016-10-19 13:01] LABS: SQUAMOUS EPITHELIAL CELL,UR RARE; URINE SAMPLE TYPE VOIDED SPECIMEN
== END ==
LOC: LAB 10:57
PROVIDERS: ATTEND Obstetrics & Gynecology
DX: N39.41 Urge incontinence (principal); R39.15 Urgency of urination
CPT/HCPCS: 81001

== ENCOUNTER → 2016-10-20 | Outpatient (CLI) | payer BC ==
--- NOTE | 2016-10-20 10:33 | DI ---
US PELVIC-TRANSVAGINAL, : Clinical History: Menometrorrhagia Previous Exam: None at this facility. Findings: Multiple transvaginal grayscale and color Doppler sonographic images are obtained through the pelvis demonstrating a normal-appearing uterus measuring 8.7 x 5.8 x 4.8 cm with an endometrial stripe measu ring 11 mm. A few nabothian cysts were seen. The uterus contain a heterogeneously hypoechoic area measuring approximately 2.9 x 2.9 x 2.5 cm in th e posterior myometrium. There is some heterogeneously hyperechoic signal in the fundal portion of the myometrium. Impression: 1. Fibroid uterus. 2. Mildly hyperechoic fundal endometrial stripe. This is a nonspecific finding likely representing a variant. Cannot rule out an endometrial polyp, focus of adenomyosis or submucosal fibroid. Consider e ndometrial biopsy or repeat imaging in 6-10 weeks.
== END ==
LOC: US 09:18
PROVIDERS: ATTEND Obstetrics & Gynecology
DX: N92.1 Excessive and frequent menstruation with irregular cycle (principal); D25.9 Leiomyoma of uterus, unspecified
CPT/HCPCS: 76830

== ENCOUNTER 2016-11-03 06:31 | Day surgery (SDC) | payer BC ==
[~2016-11-03 06:31] MED LIST: LIDOCAINE W/ SODIUM BICARB 0.5 ML SYR ONE; Lactated Ringers 1,000 ML PRIMARY IV ONE
[2016-11-03 06:48] LABS: URINE SPECIFIC GRAVITY - MAN 1.014
[2016-11-03] MEDS ORDERED: LIDOCAINE MPF 2% - 5 ML (20 MG/1 ML) ONE (07:17)
[2016-11-03] MEDS ORDERED: fentaNYL Inj 100 MCG/2 ML VIAL ONE (07:17)
[2016-11-03] MEDS ORDERED: MIDAZOLAM 5 MG/1 ML ONE (07:17)
--- NOTE | 2016-11-03 07:36 | OB.OP.NOTE ---
Operative Report Surgeon: Sacha Anesthesia Type: General (With LMA) Anesthesia Provider: Jose Contreras CRNA Surgery Date: 11/03/16 Preoperative Diagnosis: Menometrorrhagia, fibroid uterus, dysmenorrhea, dyspareunia, possible endometrial polyp, anxiety and declined endometrial biopsy in office Postoperative Diagnosis: Same; no evidence of endometrial polyp Procedure: Exam under anesthesia. Hysteroscopy D&C Estimated Blood Loss (mL): 10 Fluids: 800 cc LR Complications: None apparent No evidence of uterine perforation with dilation or curettage Findings at Surgery: Fluffy endometrial lining No evidence of endometrial polyp The patient's right ostia could be visualized. The left cornua was visualized but the ostia itself was not visualized. Indications for the Procedure: The patient is a 51-year-old white female 003 LMP 10/07/2016 using a tubal ligation for contraception who saw me on 10/19/2016 as a new consult for menometrorrhagia. The patient presents today for a preop prior to a hysteroscopy D&C. Additionally, on her pelvic ultrasound she had an 11 mm endometrial stripe, posterior fibroid uterus and the manager of manufacturing thought there may be a small endometrial polyp. So the patient would also have a polypectomy. Past medical history significant for depression, anxiety, sleep disorder, edema of her lower extremities, history of hypertension, and GERD. No asthma or no diabetes. Past surgical history significant for a total thyroidectomy this year. Patient is still having her thyroid medicine regulated. No known drug allergies but the patient gets significantly nauseated with hydrocodone. No tobacco, rare alcohol, no drugs. Vaginal delivery 3 Description of Procedure: The patient was taken to the operating room after the risks, benefits, alternatives and indication of a hysteroscopy D&C and possible polypectomy were discussed with patient. The consent form had been signed previously. The patient underwent general anesthesia with LMA. The patient was placed in the [facility] in the dorsal lithotomy position. Exam under anesthesia was completed. Cytotec tablets that were placed by the patient previously for cervical ripening were removed. The patient was prepped and draped sterilely. A timeout was completed and the patient and procedures were identified. A weighted speculum was placed in the posterior vagina and a Duron retractor was placed gently in the anterior vagina and the cervix was visualized. At times the OR nurse held the Duron retractor in place gently. The cervix was grasped with a single-tooth tenaculum on the anterior lip of the cervix. The cervix and uterus was then sounded to 9 cm The cervix was then dilated up to a 30 dilator. The hysteroscope was then placed through the cervix and into the uterus. A fluffy endometrium was visualized. No endometrial polyp was visualized. The right ostia was visualized. The left cornual area was visualized but the ostia itself on the left was not visualized. The hysteroscope was removed and a curetting of the endometrial lining was completed. Tissue was obtained. This was placed on a Telfa pad. The hysteroscope was then placed again and there was minimal bleeding. There was still some fluffy endometrium and then the hysteroscope was removed and another curetting of the endometrial lining was completed. There was a good crigh in all 4 quadrants. A hysteroscope was placed one more time and there was some fluffy endometrium in place but most of it had been removed with the curettage. There was no evidence of endometrial polyp visualized. There was no evidence of uterine perforation at any time. The hysteroscopy D&C was then completed. The single-tooth tenaculum was removed from the anterior lip of the cervix and the right side had some bleeding and 4-0 Vicryl suture and one [id number] stitch was placed and allowed for good hemostasis. There was good hemostasis from the tenaculum on the left side of the anterior lip of the cervix. At that time, there was minimal bleeding from the patient's cervix from the curettage itself. Exam of the patient's vagina anteriorly and posterior did not show any bleeding or any lacerations from the Duron retractor or from the weighted speculum. There was good hemostasis. The procedure was completed at that time. The patient was awakened from her general anesthesia with LMA and brought to the PACU in stable condition. Pathology will be sent. Plan: Await pathology results.
[2016-11-03] MEDS ORDERED: KETOROLAC 15 MG/1 ML VIAL IVP PRN (08:14)
[2016-11-03] MEDS ORDERED: ONDANSETRON 4 MG/2 ML VIAL IVP PRN (08:14)
[2016-11-03] MEDS ORDERED: oxyCODONE-ACETAMINOPHEN 5-325 TAB PO PRN (08:14)
[2016-11-03] MEDS ORDERED: NORMAL SALINE 10 ML SYRINGE FLUSH IVP PRN ×2 (08:14→08:27)
[2016-11-03] MEDS ORDERED: Lactated Ringers 1,000 ML PRIMARY IV SCH (08:15)
[2016-11-03] MEDS ORDERED: KETOROLAC 30 MG/1 ML VIAL ONE (08:19)
[2016-11-03] MEDS ORDERED: HYDROmorphone 2 MG/1 ML IVP PRN (08:27)
[2016-11-03] MEDS ORDERED: fentaNYL Inj 100 MCG/2 ML VIAL IVP PRN (08:27)
[2016-11-03 08:42] VITALS: RESP 18
[2016-11-03] MEDS ORDERED: oxyCODONE-ACETAMINOPHEN 5-325 TAB PO ONE ×2 (08:50→08:52)
[2016-11-03 10:16] VITALS: TEMP 97.4
== END 2016-11-03 09:43 | disposition home or self-care (01) ==
LOC: SDSC 06:31
PROVIDERS: ATTEND Obstetrics & Gynecology
DX: N92.1 Excessive and frequent menstruation with irregular cycle (principal); N94.6 Dysmenorrhea, unspecified; D25.9 Leiomyoma of uterus, unspecified; N94.10 Unspecified dyspareunia
CPT/HCPCS: 58558; 84703; J1885; J2001; J2250; J2704; J3010; J7120

== ENCOUNTER 2016-12-13 06:21 | Observation (INO) ==
[~2016-12-13 06:21] MED LIST changes: +LIDOCAINE W/ SODIUM BICARB 0.5 ML SYR SUBD ONE; +Lactated Ringers 1,000 ML PRIMARY IV SCH; +Lactated Ringers 2,000 ML PRIMARY IV ONE; +Sodium Chloride 0.9% 100 ML IV ONE
[2016-12-13 06:42] LABS: BILIRUBIN,URINE SMALL (NEG); CLARITY,URINE CLEAR (CLEAR); COLOR,URINE YELLOW (Y); GLUCOSE, URINE (UA) NEGATIVE (NEG); NITRATE,URINE NEGATIVE (NEG); OCCULT BLOOD,URINE NEGATIVE (NEG); PH,URINE 5.5 (5.0-8.5); PROTEIN,URINE 30 mg/dl (NEG); UROBILINOGEN,URINE 0.2 EU/dL (0.2)
[2016-12-13 06:46] LABS: URINE SPECIFIC GRAVITY - MAN 1.031
[2016-12-13 06:47] LABS: URINE SAMPLE TYPE CLEAN CATCH URINE; URINE SPECIFIC GRAVITY - MAN 1.031
[2016-12-13 06:50] LABS: RBC,URINE 0-1 /hpf; SQUAMOUS EPITHELIAL CELL,UR MANY; WBC,URINE 0-1
[2016-12-13 06:51] LABS: BACTERIA,URINE FEW
[2016-12-13 07:17] LABS: Hematocrit [HCT] 33.1 % (37.0-47.0); Hemoglobin [HGB] 10.3 g/dL (12.0-16.0)
[2016-12-13] MEDS ORDERED: Propofol 200 MG/20 ML VIAL IV ONE (07:26)
[2016-12-13] MEDS ORDERED: SUFENTANIL 50 MCG/1 ML ONE (07:26)
[2016-12-13] MEDS ORDERED: MIDAZOLAM 5 MG/1 ML ONE (07:26)
[2016-12-13] MEDS ORDERED: fentaNYL Inj 250 MCG/5 ML VIAL ONE (07:26)
[2016-12-13] MEDS ORDERED: KETAMINE 100 MG/1 ML - 5 ML ONE (07:26)
[2016-12-13] MEDS ORDERED: LIDOCAINE MPF 2% - 5 ML (20 MG/1 ML) ONE (07:27)
[2016-12-13] MEDS ORDERED: Sodium Chloride 0.9% vial 10 ML ONE ×2 (07:29→07:36)
[2016-12-13] MEDS ORDERED: BUPIVACAINE 0.25% W/ EPI - 10 ML VIAL ONE (07:34)
[2016-12-13] MEDS ORDERED: BUPIVACAINE 0.5% W/ EPI - 10 ML VIAL ONE (07:36)
[2016-12-13] MEDS ORDERED: ONDANSETRON 4 MG/2 ML VIAL ONE (07:51)
[2016-12-13] MEDS ORDERED: DEXAMETHASONE PF 10 MG/1 ML VIAL ONE (07:51)
[2016-12-13] MEDS ORDERED: CefOXitin Inj 2 GM in Sodium Chloride 0.9% 100 ML IV ONE (08:00)
[2016-12-13] MEDS ORDERED: Lactated Ringers 1,000 ML PRIMARY IV ONE (08:16)
[2016-12-13] MEDS ORDERED: Lactated Ringers 2,000 ML PRIMARY IV ONE (08:16)
[2016-12-13] MEDS ORDERED: HYDROmorphone 2 MG/1 ML IVP PRN (08:56)
[2016-12-13] MEDS ORDERED: Prochlorperazine Edisylate Inj 10mg/2ml vial IVP PRN (08:56)
[2016-12-13] MEDS ORDERED: NORMAL SALINE 10 ML SYRINGE FLUSH IVP PRN ×2 (08:56→12:48)
--- NOTE | 2016-12-13 08:58 | CRNA.PROGR ---
Anesthesia Time - - Start date: 12/13/16 End date: 12/13/16 - Procedure/Recovery Time Anesthesia : Time In: 07:56 - Other Weight: 81.193 kg Height: 5 ft 8 in Body Mass Index (BMI): 27.2 Anesthesia Type: General Anesthesia : ET
[2016-12-13] MEDS ORDERED: Lactated Ringers 1,000 ML PRIMARY IV SCH ×2 (09:00→15:45)
[2016-12-13] MEDS ORDERED: KETOROLAC 30 MG/1 ML VIAL ONE (09:00)
[2016-12-13] MEDS ORDERED: SUGAMMADEX SODIUM 200 MG/2 ML VIAL IV ONE (09:01)
[2016-12-13] MEDS ORDERED: LIDOCAINE HCL 2 % 10 ML JELLY URO-JECT TOPICAL ONE ×2 (09:40→09:41)
[2016-12-13] MEDS ORDERED: Opium-Belladonna 30-16.2mg 1 EACH SUPP.RECT RECTAL ONE ×2 (09:40→10:00)
[2016-12-13] MEDS ORDERED: SUCCINYLCHOLINE CHLORIDE 20 MG/1 ML - 10 ML ONE (10:25)
[2016-12-13] MEDS ORDERED: Meperidine Inj 50 MG/ML CARPUJECT ONE (10:54)
[2016-12-13] MEDS ORDERED: Meperidine Inj 50 MG/ML CARPUJECT IVP ONE (10:59)
--- NOTE | 2016-12-13 11:06 | OB.OP.NOTE ---
Operative Report Surgeon: Sacha Price Checker: Carlos Padilla MD Anesthesia Type: General Anesthesia Provider: Jose Contreras CRNA Surgery Date: 12/13/16 Preoperative Diagnosis: Menometrorrhagia. Endometrial simple hyperplasia without atypia. Fibroid uterus. Dysmenorrhea. Dyspareunia. Patient desires definitive management Postoperative Diagnosis: Same Procedure: Exam under anesthesia. Robotic-assisted laparoscopic hysterectomy with bilateral salpingo-oophorectomy. Cystoscopy Estimated Blood Loss (mL): 75 Fluids: 3200 mL LR Complications: None apparent Findings at Surgery: Uterus Bilateral fallopian tubes and bilateral ovaries Cystoscopy showed good spill from both ureters into the bladder and a normal bubble was visualized at the dome of the bladder Hemostasis of the vaginal cuff from the abdominal aspect and vaginal aspect at the completion of the procedure Indications for the Procedure: Patient is a 51-year-old with menometrorrhagia and a fibroid uterus noted on ultrasound with D&C showing simple hyperplasia without atypia. Along with the above, the patient also had dysmenorrhea and dyspareunia and desired definitive management with a hysterectomy. The risks, benefits, alternatives and indication of a hysterectomy versus medical management was discussed with the patient and the patient opted for definitive management with a hysterectomy and BSO. Description of Procedure: The patient was brought back to the operating room after the consent form was signed after the risk, benefits, alternatives and indications of the surgery was discussed with the patient in detail. The patient had received a scopolamine patch and placed it the evening before behind her ear. She was also prescribed 200 g of Cytotec which she placed vaginally the evening before to help soften and ripen the cervix for a more easy application of the uterine manipulator. The patient was placed on the operating room table in the supine position. The patient underwent general endotracheal anesthesia without complication. The patient was then placed in the [facility] in the dorsal lithotomy position. An exam under anesthesia was completed and the 2 tablets of Cytotec-100 g each- were noted and removed from the vaginal vault. The uterus was palpated and noted to be mobile and midplane. The patient was then prepped and draped sterilely. A timeout was completed and the patient and procedures were identified. Everyone agreed that the patient and procedure were identified. A Lopez catheter was placed. Yellow urine was returned. A total of 30+ cc was obtained during the case. The patient voided prior to going back to the operating room. A weighted speculum was placed posteriorly and a Phoenix retractor was placed anteriorly and the cervix was visualized and single-tooth tenaculum was used to grasp the cervix on the anterior lip of the cervix. The uterus was then sounded to 8 cm. An 8 cm tip was selected and a medium Vicente ring was selected. The uterine manipulator was assembled and then the tip was placed through the cervix into the uterine cavity and insufflated with air. The Vicente ring was then placed over the patient's cervix and checked to ensure that the cervix was well protected with the Vicente ring. Gloves were changed. Attention was then turned to the patient's abdomen. Infraumbilically was injected with quarter percent Marcaine with epinephrine. A infraumbilical incision vertically was made about 1 cm. Using the direct insertion method the trocar and sleeve and scope were placed through the incision after towel clamps were placed on either side of the small incision that was placed infraumbilically. The trocar and sleeve under direct visualization was placed intra-abdominally and the trocar and scope were removed with the sleeve left in place. CO2 gas was used to insufflate the abdomen and the patient was placed in Trendelenburg. The scope was placed back in the abdomen through the sleeve and intra-abdominal organs were identified including intestines which appeared normal and there did not appear to be any trauma from the direct insertion. The uterus and ovaries were visualized and then the liver and other intra-abdominal contents were examined. The stomach was not distended. The right lateral port was then placed injecting the skin with the Court percent Marcaine with epinephrine and the making a small incision and then under direct visualization with the scope, the trocar and sleeve was placed and then the trocar was removed and the sleeve left in place. The same was done for the left lateral port. This was placed under direct visualization. The scope was removed. The da Alonzo robot was then brought over to the operating room table. It had been previously draped. With the da Alonzo robot positioned well, the #1 and #2 arms were attached to the right and left lateral ports and then the camera port was attached to the infraumbilical sleeve. The vessel sealer was then placed in the #1 sleeve and the gyrus bipolar was placed and the number to sleeve. The camera was placed in the infraumbilical port. Suction tubing was hooked up to the #1 sleeve. Attention was then turned to the console for the da Alonzo. Photographs were taken of the left ovary right ovary and then the uterus and both ovaries. The hysterectomy would then begin. The right ovary and fallopian tube were identified again. Right IP was identified. The vessel sealer was placed over the right IP and snugged up to the right ovary. I flipped the vessel sealer and was able to visualize that I was distant from the right ureter. The vessel sealer then cauterized the right IP and then the IP was cut. I continued up to the round ligament cauterizing and cutting with the vessel sealer. The round ligament was then identified and grasped with the vessel sealer and then cauterized and then cut. And then I continued down along the patient's uterus to the cervix clamping and then cauterizing and then cutting vessels while skeletonizing the vessels. There was good hemostasis. The left ovary and fallopian tube were then identified. I actually switched the instruments so that the vessel sealer was then port #2 and the bipolar was in port #1. The vessel sealer was then placed over the left IP and snugged up to the left ovary. I flipped the vessel sealer was able to visualize that I was distant from the left ureter. The vessel sealer then cauterized the left IP and then the IP was cut. I continued to advance the instrument clamping cauterizing and then cutting until I arrived at the round ligament. The round ligament was then identified and grasped with the vessel sealer and then cauterized and then cut. I continued to skeletonize the vessels along the uterus and then clamp cauterized and then cut. There was good hemostasis. I then had the nurse who was acting as the scrub remove the vessel sealer and place the monopolar scissors in port #1 and the gyrus bipolar in port #2. The gyrus was then used to cauterize the skeletonize vessels along the cervix on the patient's right side and then switching over to the left side. Additionally, a bladder flap was created and the bladder was dissected away from the patient's cervix and vagina. At this time, my SENIOR MEDICAL WRITER partner-Dr. Carlos Padilla and my self switched places. He worked the console and I manipulated the uterus using the uterine manipulator. At this time, the monopolar scissors were then used to make the vaginal incision and the blue Vicente ring was then visualized. The vagina was incised from 12:00 down to the 3:00 on a clock face and then from 12:00 down to 9:00. The uterus was then anteverted or flipped up and the vaginal incision was made around 6:00 and the blue Vicente ring was visualized. There were a couple vessels on the left side which were identified and bovied with the bipolar and then cut with the monopolar scissors. One more vessel was identified on the patient's right side and was bovied with the gyrus bipolar and then cut with the monopolar scissors. The vaginal incision was then extended up to the 3:00 site and then to the 9:00 site and then the vagina was incised 360. The uterus, fallopian tubes, bilateral ovaries were then removed attached through the vagina and placed in a sterile bowl and then handed off to the waiting nurse. These would be sent for pathology identification. A suction universal banker was placed in port #1 with the monopolar scissors being removed and suction was completed and EBL was thought to be around 75 mL and then irrigation was completed. Copious amounts of irrigation were used to irrigate the vaginal cuff. There did not appear to be any active bleeders on the vaginal cuff. 0V lock suture was then used to close the vaginal cuff starting on the left apex of the vaginal cuff and working towards the patient's right. Once the right apex was sutured and there was good hemostasis the suturing was then brought back towards the midline and then the suture was cut. The needle was placed in the peritoneum for removal at a later time laparoscopically. The vaginal cuff was examined. The needle delivery route driver was removed and the suction universal banker was placed again and irrigation was used and then suction. There appeared to be excellent hemostasis of the vaginal cuff. At this time, it was decided that we could disconnect the robot after removing the instruments and scope. The instruments were removed from port #1 into and the scope was removed from the infraumbilical port. This eventually robot was then detached from the laparoscopic sleeves and removed from the field. Gowns and gloves were then changed and then the needle from the V lock suture was located with laparoscope and then using a laparoscopic grasper the suture was grasped and the suture and needle were removed intact. Again, the vaginal cuff was examined and there appeared to be good hemostasis. There appeared to be good hemostasis of the left IP and right IP additionally. The laparoscopic instruments and scope were removed. CO2 gas was turned off. CO2 gas was allowed to escape from the patient's abdomen. The 3 ports were removed. The infraumbilical incision was then turned to. S hook retractors were used to grasp the fascia inferiorly and superiorly under direct visualization and then the fascia was closed using a [id number] suture of 0 Vicryl suture. Good closure of the fascia was noted. The subcutaneous tissue of all 3 port sites was then closed with 4-0 Monocryl suture. The skin of all 3 port sites were then closed with 3-0 Stratafix suture Steri-Strips were then placed and then a bandage was placed over the 3 incision sites. A cystoscopy was performed and there appeared to be a good bubble in the dome of the bladder signifying that the bladder was intact and the ureteral orifices were identified on the right and left side and there appeared to be good spill of urine into the bladder from the ureter from the left ureter and right ureter. The cystoscopy was completed. Sponge lap and needle counts were correct 2. There did not appear to be any bleeding from the patient's vagina. It should be noted that earlier a B&O suppository 30 mg was placed in the patient's rectum. The patient also had a scopolamine patch which was placed the evening before surgery. The patient was then awakened from her general endotracheal fashion. I was told by anesthesia that the patient did retain some CO2 and so waking the patient up did take a little longer but the patient did well. The patient will recover in the medical surgical unit under a 23-hour observation. Plan: The patient will recover on the MedSur unit in an observation status.
[2016-12-13] MEDS ORDERED: HYDROmorphone 2 MG/1 ML ONE (11:40)
[2016-12-13] MEDS ORDERED: IBUPROFEN 800 MG TABLET PO PRN (12:48)
[2016-12-13] MEDS ORDERED: LIDOCAINE HCL 2 % 10 ML JELLY URO-JECT TOPICAL PRN (12:48)
[2016-12-13] MEDS ORDERED: Ondansetron ODT Tab 8 MG TAB PO PRN (12:48)
[2016-12-13] MEDS ORDERED: Influenza Vacc-Egg Free 17-18 180mcg/0.5ml PF Syringe(18yr+) IM ONE (13:11)
[2016-12-13] MEDS: KETOROLAC 15 MG/1 ML VIAL IVP SCH ×2 (14:27→21:01)
[2016-12-13] MEDS: oxyCODONE-ACETAMINOPHEN 5-325 TAB PO PRN ×2 (15:10→19:31)
[2016-12-13] MEDS ORDERED: Promethazine Tab 25 MG TAB PO PRN (15:44)
--- NOTE | 2016-12-13 15:47 | PDOC(PROG) ---
Subjective Post Op Day: 0 Pain Management: PO Lopez Catheter: No Flatus: No Diet: Regular (Has not eaten yet except for couple crackers) Ambulating: No Concerns / Additional Information: Has not ambulated yet. Has not voided yet. IV fluids were discontinued. Objective - General General Appearance: POSITIVE: Cooperative, Mild Distress Assesstment / Plan Assessment / Plan: Assessment: Postoperative day #0 status post robotic-assisted laparoscopic hysterectomy and BSO. Patient is having some cramping and shoulder pain. Plan: Lactated Ringer's 125 mL per hour Promethazine 25 mg one half tab to 1 tab by mouth every 6 hours when necessary nausea Ambulate 3 times a day at least Continue to observe closely
[2016-12-13] MEDS: Lactated Ringers 1,000 ML PRIMARY IV SCH (16:28)
--- NOTE | 2016-12-13 20:54 | PDOC(PROG) ---
Subjective Post Op Day: 0 Pain Management: PO Lopez Catheter: No Flatus: No Diet: Regular Ambulating: Yes Concerns / Additional Information: The patient felt lightheaded when she was walking. Her thought it was secondary to the anesthesia. The patient is not bleeding. Objective - General General Appearance: POSITIVE: No Acute Distress, Cooperative - Abdomen Abdominal Wound Assessment: Steri Strips Applied (Dressing applied Abdomen is appropriately tender but also soft without guarding or rebound) Assesstment / Plan Assessment / Plan: Assessment: Postoperative day #0 status post robotic-assisted laparoscopic hysterectomy and BSO and cystoscopy. The patient was slightly lightheaded with ambulating perhaps secondary to the anesthesia side effects. Also the patient had a scopolamine patch which the patient removed at my request this evening. This may help. Patient did void 500 mL earlier and did ambulate around the nurse's station once. Plan: Continue care Observe closely
[2016-12-13] MEDS: QUEtiapine Tab 100 MG TAB PO SCH (21:00)
[2016-12-13] MEDS: GABAPENTIN 300 MG CAPSULE PO SCH (21:00)
[2016-12-13] MEDS: DOCUSATE 100 MG CAPSULE PO SCH (21:01)
[2016-12-14] MEDS: oxyCODONE-ACETAMINOPHEN 5-325 TAB PO PRN ×4 (00:46→20:53)
[2016-12-14] MEDS: Lactated Ringers 1,000 ML PRIMARY IV SCH ×3 (01:00→17:17)
[2016-12-14] MEDS: KETOROLAC 15 MG/1 ML VIAL IVP SCH ×4 (02:41→20:49)
[2016-12-14] MEDS: LEVOTHYROXINE 100 MCG TABLET PO SCH (04:31)
[2016-12-14 05:39] LABS: BASOPHILS # (AUTO) 0.01 10*3/UL; BASOPHILS % (AUTO) 0.2 % (0-1); EOSINOPHILS # (AUTO) 0.04 10*3/UL; EOSINOPHILS % (AUTO) 0.7 % (0-8); Hematocrit [HCT] 29.3 % (37.0-47.0); MEAN CORPUSCULAR HEMOGLOBIN 23.9 PG (27-31); MEAN CORPUSCULAR HGB CONC 30.7 g/dL (33-37); MEAN CORPUSCULAR VOLUME 77.9 FL (81-99); MEAN PLATELET VOLUME 10.7 FL (7.4-12.2); MONOCYTES # (AUTO) 0.58 10*3/UL (0.3-0.8); MONOCYTES % (AUTO) 10.7 % (5-15); NEUTROPHILS # (AUTO) 3.67 10*3/UL; RED BLOOD COUNT 3.76 10^6/uL (4.20-5.40)
[2016-12-14 05:46] LABS: PLATELET MORPHOLOGY COMMENT NORMAL MORPHOLOGY (NORM); RBC MORPHOLOGY COMMENT NORMAL MORPHOLOGY (NORM); WBC MORPHOLOGY COMMENT NORMAL MORPHOLOGY (NORM)
[2016-12-14 05:50] LABS: BLOOD UREA NITROGEN 14 mg/dL (7-22)
--- NOTE | 2016-12-14 08:20 | EKG ---
[address] [place] [address] Measurements Intervals [place] Rate: 59 P: 55 NC: 222 QRS: 85 QRSD: 101 T: 37 QT: 434 QTc: 434 Interpretive Statements SINUS BRADYCARDIA WITH FIRST DEGREE AV BLOCK NONSPECIFIC T-WAVE ABNORMALITY Compared to ECG 06/23/2016 13:52:18 Sinus rhythm no longer present T-wave abnormality still present Electronically Signed On 12-14-16 13:28:22 MDT by Yakov Rollins MD [email or web address]
[2016-12-14] MEDS ORDERED: MORPHINE SULFATE 2 MG/1 ML IVP ONE (08:27)
[2016-12-14] MEDS: OMEPRAZOLE 20 MG CAPSULE PO SCH (08:36)
[2016-12-14] MEDS: GABAPENTIN 300 MG CAPSULE PO SCH ×3 (08:36→20:47)
[2016-12-14] MEDS: VENLAFAXINE XR 75 MG CAP PO SCH (08:38)
[2016-12-14] MEDS: DOCUSATE 100 MG CAPSULE PO SCH ×2 (08:38→20:48)
--- NOTE | 2016-12-14 10:17 | PDOC(PROG) ---
Subjective Post Op Day: 1 Pain Management: PO Lopez Catheter: No Flatus: No Diet: Regular Ambulating: Yes Concerns / Additional Information: The patient had chest pressure this morning like an elephant sitting on her chest. The patient had 1 set of cardiac enzymes. The patient voided last p.m. and just voided now. She usually takes hydrochlorothiazide in the morning 25 mg. The patient is having some abdominal discomfort and actually the patient states that she hurts from head to toe. No fever or chills. Objective - General General Appearance: POSITIVE: Cooperative, Mild Distress - Cardiovacular Cardiovascular Exam: POSITIVE: RRR Extremities: Negative Leta's - Bilaterally - Respiratory Respiratory Exam: POSITIVE: Clear to Auscultation - Bilaterally - Abdomen Bowel Sounds: Hypoactive (Abdomen is appropriately tender without guarding or rebound) Assesstment / Plan Assessment / Plan: Assessment: Postoperative day #1 status post robotic-assisted laparoscopic hysterectomy and bilateral salpingo-oophorectomy. Also cystoscopy which showed bilateral spill from the ureteral orifices into the bladder. Patient H&H this morning is 9 and 29 and white count is normal at 5-1/2 Patient had chest pain this morning like an elephant sitting on her chest. Last vital signs showed the pulses 113 and her blood pressure was 169 over 80s. This may be secondary to some anxiety. Plan: I spoke with the hospitalist and he will evaluate the patient and obtain cardiac enzymes 3 starting 6 hours after the initial chest pain. If these are negative, he may even do a nuc med scan tomorrow Hydrochlorothiazide 25 mg starting this morning. Repeat vital signs after the patient just ambulated. Admit patient to inpatient status from observation status secondary to the chest pain and the evolving workup that will have to take place Incentive spirometer every to 2 hours while awake Continue to observe closely and have hospitalist evaluate patient. Repeat blood pressure was 97/56 and her pulse was 61 and this was after ambulating.
--- NOTE | 2016-12-14 10:22 | CONSULT ---
Consult Note - Consult Reason for Consult: Other (Chest pain status post hysterectomy) Requesting Physician: Sacha Primary Care Provider: Stoney Goncalves MD - History of Present Illness History of Present Illness: Is a very nice 51-year-old female who just underwent the hysterectomy. Has a history of anxiety and started experiencing some chest pressure like an elephant was sitting on her which is now resolved with the first troponin negative with no significant EKG changes Past Medical History Medical History: 1. Garret's thyroiditis. 2. Hypercholesterolemia. 3. Insomnia. 4. GERD with esophagitis Surgical History: 1. Thyroid nodule fine-needle aspiration. 2. Breast reduction surgery. 3. EGD done in 2011. Some mild esophagitis noted. Tobacco Use: Never Smoker In the Past 12 Months, Have Used or Abuse Any of the Following Substance: None Review of Systems - Review of Systems All Systems: Reviewed & No Additional Complaints Except as Stated - Respiratory Respiratory: DENIES: Negative System Review, Cough, Sputum, Dyspnea At Rest, Dyspnea with Exertion, Pleuritic Pain, Hemoptysis, Wheezing, Other, See HPI - Cardiovascular Cardiovascular: REPORTS: Chest Pain. DENIES: Palpitations, Orthopnea, Paroxysmal Nocturnal Dyspnea - Gastrointestinal Gastrointestinal / Abdominal: DENIES: Negative System Review, Nausea, Vomiting, Diarrhea, Constipation, Abdominal Pain, Bloody Stool, Poor Appetite, Heartburn, Regurgitation, Bloating, Lactose Intolerance, Melena, Bright Red Blood per Rectum, Other, See HPI - Neurological Neurologic: DENIES: Negative System Review, Headache, Numbness/Paresthesia, Tremors, Weakness, Seizures, Head Trauma, LOC, Dizziness, Confusion, Memory Loss , Difficulty Walking, Incoordination, Other, See HPI Medication / Allergies Home Medications: Home Medications Medication Instructions Recorded Confirmed Type Valacyclovir HCl [Valtrex] 1,000 mg PO BID #6 tab 09/25/14 12/13/16 History Acyclovir 2 tab PO QAM #60 tab 12/26/15 12/13/16 Rx Gabapentin 1 cap PO as directed #360 cap 07/08/16 12/13/16 Rx Hydrochlorothiazide 25 mg PO DAILY #90 tab 07/08/16 12/13/16 Rx Omeprazole 1 cap PO DAILY #90 cap 07/08/16 12/13/16 Rx Quetiapine Fumarate [Seroquel] 200 mg PO QHS #180 tab 07/08/16 12/13/16 Rx Venlafaxine HCl [Venlafaxine Hcl 150 mg PO DAILY #90 cap 07/08/16 12/13/16 Rx Er] Bupropion HCl [Bupropion Xl] 1 tab PO DAILY #30 tab 10/19/16 12/13/16 Rx Levothyroxine Sodium 1 tab PO DAILY tab 10/19/16 12/13/16 History Tolterodine Tartrate [Tolterodine 4 mg PO QD #30 cap 10/19/16 12/13/16 Rx Tartrate Er] Misoprostol [Cytotec] 200 mcg VAGINAL QHS #2 tab 10/27/16 12/13/16 Clinic Docusate Sodium [Colace] 100 mg PO DAILY PRN #30 cap 11/03/16 12/13/16 Rx Ibuprofen 800 mg PO TID #30 tab 11/03/16 12/13/16 Rx Oxycodone HCl/Acetaminophen 1 - 2 tab PO Q6H PRN #10 tab 11/03/16 12/13/16 Rx [Oxycodone-Acetaminophen 5-325] Promethazine HCl 12.5 - 25 mg PO Q6H PRN #10 tab 11/03/16 12/13/16 Rx misoprostol 200 mcg tablet 200 mcg VAGINAL QPCHS #1 tab 12/08/16 12/13/16 Rx scopolamine 1.5 mg transdermal 1 patch TRANSDERM Q3D PRN #1 ea 12/08/16 Rx patch (1 mg over 3 days) Allergies/Adverse Reactions: Allergies 3 Allergy/AdvReac Type Severity Reaction Status Date / Time No Known Drug Allergies Allergy NOT Verified 12/13/16 06:16 APPLICABLE Exam - Vitals Vital Signs: Vital Signs Temperature 98.9 F Temperature Source Oral Pulse Rate [Pulse Oximeter] 113 Pulse Rate [Telemetry] 74 Pulse Rate 76 Respiratory Rate 22 Blood Pressure [Right Arm] 169/86 Blood Pressure [Left Arm] 90/60 Blood Pressure 111/78 Pulse Ox 92 Oxygen Flow Rate 2 Oxygen Delivery Method Nasal Cannula Height 5 ft 8 in Weight 179 lb - General General Appearance: No Acute Distress, Cooperative - Head Head Exam: Normocephalic, Atraumatic - Eye Eye Exam: POSITIVE: Normal Appearance - Respiratory Respiratory Exam: POSITIVE: Clear to Auscultation - Bilaterally, Breathing Non Labored, Normal To Percussion - Cardiovascular Cardiovascular Exam: POSITIVE: RRR, No Murmur, No Clicks - GI/Abdominal GI/Abdominal Exam: POSITIVE: Normal Bowel Sounds, Non Distended, Soft - Extremities Extremities Exam: POSITIVE: Normal Capillary Refill, No Clubbing Present - Back Back Exam: POSITIVE: Normal Inspection - Neurological Neurological Exam: POSITIVE: Alert, Oriented x 3, CN II-XII Intact, No Facial Droop Results - Labs CBC and BMP: 12/14/16 04:30 12/14/16 04:30 Assessment and Plan - Patient Problems (1) Chest pain Current Visit: No Status: Acute Comment: Troponins 3 this definitely could represent anxiety or heartburn the patient did have a Lexiscan stress test before surgery as well as a treadmill which she says is it was negative. So this being coronary artery disease is lower on my probability list list but since this was acute and she still has some pressure and some pain on deep inspiration I will order a CT scan PE protocol. I will also give her 1 mg of Ativan and 40 of Protonix Code(s): R07.9 - Chest pain, unspecified
[2016-12-14] MEDS: HYDROCHLOROTHIAZIDE 25 MG TABLET PO SCH (10:28)
[2016-12-14] MEDS ORDERED: LORazepam 2 MG/1 ML VIAL IVP PRN (10:41)
--- NOTE | 2016-12-14 12:09 | DI ---
CT ANGIOGRAM OF THE CHEST, 12/14/2016 10:40 AM : Clinical History: Acute shortness of breath following recent pelvic surgery. Previous Exam: 09/29/2016. Scans are performed from the base of the neck to the lower lung bases following IV administration of 65 mL of Isovue 300. Proprietary automated bolus tracking software was used to verify the timing of t he injection. The base of the neck and thoracic inlet are normal. There are no abnormal axillary, supraclavicular, mediastinal, or hilar nodes. The heart is normal. The pulmonary arteries are normal. There is no pulm onary arterial hypertension. There is no evidence of pulmonary embolism or pulmonary infarction. Atel ectasis is present in the right upper lobe and in both lower lobes without evidence of pleural effusi ons. There is a small amount of free air in the abdominal cavity consistent with the history of recen t surgery. The limited views of the liver, adrenal glands, spleen, and pancreas are normal. READIN. There is no evidence of pulmonary embolism or pulmonary arterial hypertension or pulmonary infarc t. 2. There is bibasilar atelectasis along with atelectasis of the right upper lobe.
[2016-12-14] MEDS: QUEtiapine Tab 100 MG TAB PO SCH (20:53)
[2016-12-14] MEDS ORDERED: PANTOPRAZOLE 40 MG TABLET PO SCH (21:00)
[2016-12-15] MEDS: Lactated Ringers 1,000 ML PRIMARY IV SCH ×2 (00:58→09:07)
[2016-12-15] MEDS: KETOROLAC 15 MG/1 ML VIAL IVP SCH (02:57)
[2016-12-15] MEDS: LEVOTHYROXINE 100 MCG TABLET PO SCH (04:36)
[2016-12-15] MEDS: oxyCODONE-ACETAMINOPHEN 5-325 TAB PO PRN ×2 (04:36→08:54)
[2016-12-15] MEDS: HYDROCHLOROTHIAZIDE 25 MG TABLET PO SCH (06:48)
[2016-12-15 08:07] LABS: BASOPHILS # (AUTO) 0.01 10*3/UL; BASOPHILS % (AUTO) 0.2 % (0-1); EOSINOPHILS % (AUTO) 2.1 % (0-8); Hematocrit [HCT] 26.5 % (37.0-47.0); Hemoglobin [HGB] 7.8 g/dL (12.0-16.0); MEAN CORPUSCULAR HEMOGLOBIN 23.6 PG (27-31); MEAN CORPUSCULAR HGB CONC 29.4 g/dL (33-37); MEAN CORPUSCULAR VOLUME 80.3 FL (81-99); MEAN PLATELET VOLUME 10.2 FL (7.4-12.2); MONOCYTES # (AUTO) 0.55 10*3/UL (0.3-0.8); MONOCYTES % (AUTO) 11.5 % (5-15); NEUTROPHILS # (AUTO) 3.04 10*3/UL; NEUTROPHILS % (AUTO) 63.3 % (50-80)
[2016-12-15 08:09] LABS: PLATELET MORPHOLOGY COMMENT NORMAL MORPHOLOGY (NORM); RBC MORPHOLOGY COMMENT NORMAL MORPHOLOGY (NORM); WBC MORPHOLOGY COMMENT NORMAL MORPHOLOGY (NORM)
[2016-12-15 08:19] LABS: BLOOD UREA NITROGEN 13 mg/dL (7-22); BUN/CREATININE RATIO 18.57 (6-20)
--- NOTE | 2016-12-15 08:52 | PDOC(PROG) ---
General Note Progress Note: I talked to the patient this morning her chest pain is resolved she feels much better and is the one thing and ready to be discharged home. CT scan was negative for pulmonary embolus no other acute abnormality seen according to Dr. Helton. Troponins were negative 3 I believe this was an anxiety/panic attack patient was treated with Ativan had a really good night sleep. From my perspective patient okay to go home chest pain is resolved I will sign off thank you Dr. Goncalves for letting me participate in the care of this patient Patient Problems - Patient Problem List (1) Chest pain Current Visit: No Status: Acute Code(s): R07.9 - Chest pain, unspecified Category: Medical
[2016-12-15] MEDS: VENLAFAXINE XR 75 MG CAP PO SCH (08:54)
[2016-12-15] MEDS: OMEPRAZOLE 20 MG CAPSULE PO SCH (08:55)
[2016-12-15] MEDS: DOCUSATE 100 MG CAPSULE PO SCH (08:55)
[2016-12-15] MEDS: GABAPENTIN 300 MG CAPSULE PO SCH (08:55)
[2016-12-15] MEDS ORDERED: POTASSIUM CHLORIDE 20 MEQ TAB PO SCH (09:00)
--- NOTE | 2016-12-15 09:54 | PDOC(PROG) ---
Subjective Post Op Day: 2 Pain Management: PO Lopez Catheter: No Diet: Regular Ambulating: Yes Concerns / Additional Information: The patient has been up to ambulate one time this morning she did void this morning 600 mL. The patient states that her chest pain is resolved. The patient would like to go home. The patient had some oatmeal this morning. The patient is not lightheaded. She says that her pelvic pain is improved. She still hurts some other places in her body which is normal for her and that is the indication for the cavity patent that she has been prescribed by her primary care provider. Objective - General General Appearance: POSITIVE: No Acute Distress, Cooperative - Cardiovacular Cardiovascular Exam: POSITIVE: RRR Edema: No Pedal Edema Extremities: Negative Leta's - Bilaterally - Respiratory Respiratory Exam: POSITIVE: Clear to Auscultation - Bilaterally - Abdomen Bowel Sounds: Present, Hypoactive Abdominal Wound Assessment: Steri Strips Applied (Dressing applied 3) - - Additional Details: Abdomen is soft and appropriately mildly tender but no guarding and no rebound. Hypoactive bowel sounds. Assesstment / Plan Assessment / Plan: Assessment: Postoperative day #2 status post robotic-assisted laparoscopic hysterectomy and bilateral salpingo-oophorectomy. The patient is afebrile, normotensive, and has a normal pulse. The patient's chest pain has resolved and she had negative troponins 3 and negative CTA of the chest to rule out a PE. The patient has a normal white count this morning, her H&H is 7.8 and 26.5. I believe that this anemia is somewhat dilutional. The patient's H&H when she presented preoperatively nothing by mouth was 10.3 and 33.1. EBL during the surgery was 75 mL. Postoperative day 1 H&H was 9 and 29.3 and the patient has continued to receive IV fluids at 125 mL/h and her urine output has not been that much. Today, her H&H is 7.8 and 26.5 but she is normotensive and not tachycardic and afebrile. Her abdomen is soft without guarding or rebound. I do not believe that the patient is bleeding. I believe that a fair amount of this anemia is secondary to dilutional anemia and then some from blood loss during the surgery. Yesterday, the patient received 2 mg of IV Ativan and slept a lot of the day. This was administered to the patient secondary to thinking that the patient's chest pain may be secondary to a significant anxiety event. The patient ambulated last evening and this morning but has not been extremely motivated to ambulate often. The patient is voiding and voided 600 mL this morning. The patient does take hydrochlorothiazide and this was started yesterday morning. Her blood pressures have been normal. A cystoscopy was performed after the hysterectomy was completed and showed bilateral spill from the ureteral orifices into the bladder. Plan: The patient's IV has been hep-locked and will be discontinued. I would like to check an H&H early to mid afternoon to ensure that her H&H is not dropping more now that the IV has been stopped. Again, I believe that this is delusional. The patient will be discharged later today if doing well. Medications at discharge: Ibuprofen 800 mg 1 tablet by mouth 3 times a day with food or milk 5 days then 3 times a day as needed Oxycodone/APAP 1-2 tablets by mouth every 6 hours when necessary pain Ferrous sulfate 325 mg 1 tablet by mouth twice a day 30 days with 1 refill Colace 100 mg-1 tablet by mouth twice a day Promethazine 25 mg one half tablet to one tablet by mouth every 8 hours when necessary nausea The patient should drink 8 glasses of water per day The patient should remain abstinence with no vaginal intercourse for at least 10 weeks to allow for vaginal cuff healing. The patient has a follow-up appointment with me on 12/21/2016 at 10:30 in the morning. I would like asked the patient to show for her appointment at 10:15. Usual postoperative instructions should be given to the patient by the nurse. The patient should return for fever, chills, increasing abdominal pain, increasing vaginal bleeding or any other significant issues. The patient should gradually increase her activity. The patient should ambulate at least 6 times per day and if the weather is good, the patient may take walks outside during the daylight.
--- NOTE | 2016-12-15 10:24 | DCSUMMARY ---
Hospitalization Summary Admit Date: 12/13/16 Discharge Date: 12/15/16 Primary Diagnosis:: menometrorrhagia, endometrial simple hyperplasia w/o aty Secondary Diagnosis:: Menometrorrhagia Endometrial simple hyperplasia without atypia Dysmenorrhea Fibroid uterus Dyspareunia Patient desired definitive management with a hysterectomy Procedures: Robotic-assisted laparoscopic hysterectomy and bilateral salpingo- oophorectomy, cystoscopy Hospital Course: The patient underwent a robotic-assisted laparoscopic hysterectomy and BSO and then cystoscopy which showed bilateral ureteral orifice patency with spill of urine into the bladder. The patient was admitted under observation for a 23 hour observation initially. The following morning, the patient had chest pain and pressure and the hospitalist was consulted. The patient had troponins 3 which were negative and also a negative CT angiogram of her chest to rule out a PE. The patient has been slower to recover but has done well and would like to go home. The patient has an H&H of 7.8 and 26.5 on postoperative day #2 and an H&H will be checked several hours after her IV was discontinued to ensure that this was just most likely dilutional since he EBL at the time of surgery was 75 cc. Assessment: Postoperative day #2 status post robotic-assisted laparoscopic hysterectomy and bilateral salpingo-oophorectomy. The patient is afebrile, normotensive, and has a normal pulse. The patient's chest pain has resolved and she had negative troponins 3 and negative CTA of the chest to rule out a PE. The patient has a normal white count this morning, her H&H is 7.8 and 26.5. I believe that this anemia is somewhat dilutional. The patient's H&H when she presented preoperatively nothing by mouth was 10.3 and 33.1. EBL during the surgery was 75 mL. Postoperative day 1 H&H was 9 and 29.3 and the patient has continued to receive IV fluids at 125 mL/h and her urine output has not been that much. Today, her H&H is 7.8 and 26.5 but she is normotensive and not tachycardic and afebrile. Her abdomen is soft without guarding or rebound. I do not believe that the patient is bleeding. I believe that a fair amount of this anemia is secondary to dilutional anemia and then some from blood loss during the surgery. Yesterday, the patient received 2 mg of IV Ativan and slept a lot of the day. This was administered to the patient secondary to thinking that the patient's chest pain may be secondary to a significant anxiety event. The patient ambulated last evening and this morning but has not been extremely motivated to ambulate often. The patient is voiding and voided 600 mL this morning. The patient does take hydrochlorothiazide and this was started yesterday morning. Her blood pressures have been normal. A cystoscopy was performed after the hysterectomy was completed and showed bilateral spill from the ureteral orifices into the bladder. Plan: The patient's IV has been hep-locked and will be discontinued. I would like to check an H&H early to mid afternoon to ensure that her H&H is not dropping more now that the IV has been stopped. Again, I believe that this is delusional. The patient will be discharged later today if doing well. Medications at discharge: Ibuprofen 800 mg 1 tablet by mouth 3 times a day with food or milk 5 days then 3 times a day as needed Oxycodone/APAP 1-2 tablets by mouth every 6 hours when necessary pain Ferrous sulfate 325 mg 1 tablet by mouth twice a day 30 days with 1 refill Colace 100 mg-1 tablet by mouth twice a day Promethazine 25 mg one half tablet to one tablet by mouth every 8 hours when necessary nausea The patient should drink 8 glasses of water per day The patient should remain abstinence with no vaginal intercourse for at least 10 weeks to allow for vaginal cuff healing. The patient has a follow-up appointment with me on 12/21/2016 at 10:30 in the morning. I would like asked the patient to show for her appointment at 10:15. Usual postoperative instructions should be given to the patient by the nurse. The patient should return for fever, chills, increasing abdominal pain, increasing vaginal bleeding or any other significant issues. The patient should gradually increase her activity. The patient should ambulate at least 6 times per day and if the weather is good, the patient may take walks outside during the daylight. Exam - Vitals Vital Signs: Vital Signs Temperature 97.8 F Temperature Source Temporal Artery Scan Pulse Rate [Pulse Oximeter] 65 Pulse Rate [Telemetry] 74 Pulse Rate 76 Respiratory Rate 14 Blood Pressure [Right Arm] 104/63 Blood Pressure [Left Arm] 108/61 Blood Pressure 111/78 Pulse Ox 96 Oxygen Flow Rate 1.5 Oxygen Delivery Method Nasal Cannula Height 5 ft 8 in Weight 192 lb 4.8 oz
[2016-12-15 12:02] VITALS: BP 119/74; RESP 16; TEMP 97.9; O2SAT 90
[2016-12-15 14:12] LABS: Hematocrit [HCT] 28.2 % (37.0-47.0); Hemoglobin [HGB] 8.4 g/dL (12.0-16.0)
--- NOTE | 2016-12-15 14:20 | PDOC(PROG) ---
Assesstment / Plan Assessment / Plan: Patient's H&H 1400 hrs. was 8.4 and 28.2. This is increased from this morning after the IV was discontinued. I spoke with the patient and the patient is wanting to be discharged home. She states she is doing okay. She would like to be at home. Patient will follow- up as needed and next Tuesday.
== END 2016-12-15 15:20 | disposition home or self-care (01) ==
LOC: MED/SURG 06:21 → OR 06:21
PROVIDERS: ADMIT Obstetrics & Gynecology; ATTEND Obstetrics & Gynecology

== ENCOUNTER 2017-09-23 20:52 | Inpatient (IN) ==
[2017-09-23] MEDS ORDERED: MORPHINE SULFATE 4 MG/1 ML ONE (21:06)
[2017-09-23] MEDS ORDERED: Sodium Chloride 0.9% 1,000 ML PRIMARY IV ONE (21:10)
[2017-09-23] MEDS ORDERED: LIDOCAINE HCL 2 % 10 ML JELLY URO-JECT TOPICAL PRN (21:10)
[2017-09-23] MEDS ORDERED: MORPHINE SULFATE 4 MG/1 ML IVP ONE ×2 (21:10→21:42)
[2017-09-23] MEDS ORDERED: DIPH,PERTUSS,TET(ADACEL) VAC/PF 0.5 ML (Tdap) IM ONE (21:10)
[2017-09-23 21:32] LABS: BASOPHILS # (AUTO) 0.02 10*3/UL; BASOPHILS % (AUTO) 0.1 % (0-1); EOSINOPHILS # (AUTO) 0.09 10*3/UL; EOSINOPHILS % (AUTO) 0.6 % (0-8); Hematocrit [HCT] 40.3 % (37.0-47.0); Hemoglobin [HGB] 13.7 g/dL (12.0-16.0); LYMPHOCYTES # (AUTO) 2.39 10*3/uL; MEAN CORPUSCULAR HEMOGLOBIN 29.5 PG (27-31); MEAN CORPUSCULAR VOLUME 86.7 FL (81-99); MEAN PLATELET VOLUME 9.6 FL (7.4-12.2); MONOCYTES # (AUTO) 1.07 10*3/UL (0.3-0.8); MONOCYTES % (AUTO) 7.3 % (5-15); NEUTROPHILS # (AUTO) 11.01 10*3/UL; NEUTROPHILS % (AUTO) 75.4 % (50-80); RED BLOOD COUNT 4.65 10^6/uL (4.20-5.40)
[2017-09-23 21:33] LABS: PLATELET MORPHOLOGY COMMENT NORMAL MORPHOLOGY (NORM); RBC MORPHOLOGY COMMENT NORMAL MORPHOLOGY (NORM); WBC MORPHOLOGY COMMENT NORMAL MORPHOLOGY (NORM)
[2017-09-23] MEDS ORDERED: MORPHINE SULFATE 2 MG/1 ML ONE (21:33)
[2017-09-23] MEDS ORDERED: MORPHINE SULFATE 2 MG/1 ML IVP ONE ×2 (21:35→21:55)
[2017-09-23 21:44] LABS: SERUM ALBUMIN 4.2 g/dL (3.5-4.8)
[2017-09-23 21:45] LABS: LIPASE 116 IU/L (23-300)
[2017-09-23] MEDS ORDERED: KETOROLAC 30 MG/1 ML VIAL IVP ONE (22:15)
[2017-09-23] MEDS ORDERED: KETOROLAC 30 MG/1 ML VIAL ONE (22:35)
--- NOTE | 2017-09-23 22:37 | DI ---
EXAM: CT Cervical Spine Without Intravenous Contrast CLINICAL HISTORY: ITS.REASON Trauma Physician Notes: Tech Comments: TECHNIQUE: Axial computed tomography images of the cervical spine without intravenous contrast. COMPARISON: No relevant prior studies available. FINDINGS: Vertebrae: No fracture or traumatic malalignment identified. Discs/spinal canal/neural foramina: Multilevel disc space height loss and osteophytosis. Posterior disc osteophytes cause narrowing of the cervical canal at the C5-6 and C6-7 level down to an AP diameter of 8 mm. Soft tissues: Unremarkable. Thyroid: Surgical changes in the anterior neck, possibly related to thyroidectomy. Lung apices: Nonacute. IMPRESSION: 1. No evidence for fracture or traumatic malalignment. 2. Degenerative disc changes.
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
--- NOTE | 2017-09-23 22:43 | DI ---
EXAM: CT Head Without Intravenous Contrast CLINICAL HISTORY: ITS.REASON Trauma Physician Notes: Tech Comments: TECHNIQUE: Axial computed tomography images of the head/brain without intravenous contrast. COMPARISON: No relevant prior studies available. FINDINGS: Brain: No hemorrhage. No significant white matter disease. No edema. Ventricles: No ventriculomegaly. Bones/joints: No definitive acute fracture. Soft tissues: Right frontal scalp contusion. A few scattered slightly high density punctate foci are noted within the area of injury, nonspecific. Sinuses: Unremarkable as visualized. No acute sinusitis. Mastoid air cells: Unremarkable as visualized. No mastoid effusion. IMPRESSION: 1. No acute intracranial findings. 2. Soft tissue injury to the right frontal scalp. Subtle scattered superficial densities within the injured tissue are nonspecific. Correlate to exclude foreign bodies.
[2017-09-23] MEDS ORDERED: Acetaminophen 1000mg Inj 1,000 MG/100 ML VIAL IV PRN (22:50)
--- NOTE | 2017-09-23 22:54 | DI ---
EXAM: CT Chest With Intravenous Contrast CLINICAL HISTORY: ITS.REASON Trauma Physician Notes: Tech Comments: TECHNIQUE: Axial computed tomography images of the chest with intravenous contrast. COMPARISON: 12/14/16 CTA chest FINDINGS: Lungs: No evidence for airspace consolidation or hemorrhage. Subtle foci of scarring and/or atelectasis noted along the lung periphery. Small nodularities along the horizontal fissure likely related to lymph nodes. Pleural space: No pneumothorax. No significant effusion. Heart: No cardiomegaly. No significant pericardial effusion. Bones/joints: No acute fracture. No traumatic malalignment. Soft tissues: No acute findings. Vasculature: No evidence for aortic dissection or acute injury. There is mild ectasia of the ascending aorta to 3.4 cm. Lymph nodes: No pathologically enlarged lymph nodes. IMPRESSION: No acute intrathoracic findings. No visualized acute fractures.
[2017-09-23] MEDS ORDERED: Acetaminophen 1000mg Inj 1,000 MG/100 ML VIAL IV ONE (22:55)
[2017-09-23] MEDS ORDERED: Bacitracin Oint 14.2 gm tube 14 APPLIC/14.2 GM TUBE TOPICAL ONE ×2 (23:02→23:14)
--- NOTE | 2017-09-23 23:06 | DI ---
EXAM: CT Abdomen and Pelvis With Intravenous Contrast CLINICAL HISTORY: ITS.REASON Trauma Physician Notes: Tech Comments: TECHNIQUE: Axial computed tomography images of the abdomen and pelvis with intravenous contrast. Coronal and sagittal reformatted images were created and reviewed. COMPARISON: No relevant prior studies available. FINDINGS: Lung bases: Unremarkable. No mass. No consolidation. ABDOMEN: Liver: Mild hypoattenuation of the liver parenchyma adjacent to the falciform which could be related to focal fatty infiltration though nonspecific. No other evidence for injury. Gallbladder and bile ducts: Unremarkable. No calcified stones. No ductal dilation. Pancreas: Unremarkable. No mass. No ductal dilation. Spleen: Heterogeneity of the spleen likely related to contrast phase. No evidence for perisplenic hemorrhage or subcapsular hematoma. Adrenals: Unremarkable. No mass. Kidneys and ureters: Unremarkable. No solid mass. No hydronephrosis. Stomach and bowel: Mild colonic diverticulosis. No evidence for acute diverticulitis. No evidence for acute injury to the bowel. No obstruction. PELVIS: Appendix: No findings to suggest acute appendicitis. Bladder: Unremarkable. No mass. Reproductive: Unremarkable as visualized. ABDOMEN and PELVIS: Intraperitoneal space: Unremarkable. No free air. No significant fluid collection. Bones/joints: No evidence for acute fracture. Soft tissues: Likely mild soft tissue contusion to the right flank. Vasculature: No evidence for aortic or vascular injury. There is narrowing at the proximal celiac trunk, possibly related to compression from the median ligament. No abdominal aortic aneurysm. Lymph nodes: Unremarkable. No enlarged lymph nodes. IMPRESSION: 1. Mild focal hypoattenuation of the liver parenchyma adjacent to the falciform ligament, favored to be related to fatty infiltration over low- grade injury. Correlate to exclude any focal symptoms. 2. Query mild contusion to the soft tissues in the right flank. 3. Nonacute findings as above.
[2017-09-23 23:07] LABS: BILIRUBIN,URINE NEGATIVE (NEG); CLARITY,URINE CLEAR (CLEAR); COLOR,URINE YELLOW (Y); GLUCOSE, URINE (UA) NEGATIVE (NEG); OCCULT BLOOD,URINE NEGATIVE (NEG); PH,URINE 5.5 (5.0-8.5); PROTEIN,URINE 30 mg/dl (NEG); UROBILINOGEN,URINE 0.2 EU/dL (0.2)
[2017-09-23 23:08] LABS: URINE SAMPLE TYPE CATG
[2017-09-23 23:16] LABS: BACTERIA,URINE RARE; RENAL EPITHELIAL CELLS,URINE RARE; SQUAMOUS EPITHELIAL CELL,UR RARE
[2017-09-23 23:17] LABS: AMPHETAMINE SCREEN NEGATIVE (NEG); CANNABINOID SCREEN,URINE NEGATIVE (NEG); COCAINE SCREEN NEGATIVE (NEG); METHADONE URINE SCREEN NEGATIVE (NEG); METHAMPHETAMINES SCREEN,URINE NEGATIVE (NEG); OPIATE SCREEN,URINE POSITIVE (NEG); URINE SAMPLE TYPE CATH SPECIMEN; URINE SPECIFIC GRAVITY - MAN 1.025
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
--- NOTE | 2017-09-23 23:41 | DI ---
EXAM: XR Right Hand Complete, 3 or More Views CLINICAL HISTORY: ITS.REASON TRAUMA Physician Notes: Tech Comments: TECHNIQUE: Frontal, lateral and oblique views of the right hand. COMPARISON: No relevant prior studies available. FINDINGS: Bones/joints: Unremarkable. No acute fracture. No dislocation. Soft tissues: Unremarkable. No radiopaque foreign body. Other findings: Diffuse superficial punctate opacities noted likely, likely on the skin/external. IMPRESSION: No visualized fracture.
--- NOTE | 2017-09-23 23:43 | DI ---
EXAM: XR Right Forearm, 2 Views CLINICAL HISTORY: ITS.REASON TRAUMA Physician Notes: Tech Comments: TECHNIQUE: Frontal and lateral views of the right forearm. COMPARISON: No relevant prior studies available. FINDINGS: Bones/joints: Unremarkable. No acute fracture. No dislocation. Soft tissues: Mild diffuse soft tissue edema. IMPRESSION: 1. No visualized injury to the right radius or ulna. 2. Soft tissue edema.
--- NOTE | 2017-09-23 23:46 | DI ---
EXAM: XR Right Humerus, 2 or More Views CLINICAL HISTORY: ITS.REASON trauma Physician Notes: Tech Comments: TECHNIQUE: Frontal and lateral views of the right humerus. COMPARISON: No relevant prior studies available. FINDINGS: Bones/joints: No definitive evidence for fracture or traumatic malalignment regarding the right humerus. Soft tissues: Extensive soft tissue edema diffusely along the lateral and dorsal aspect of the right upper extremity. Punctate and polygonal soft tissue opacities which may be superficial. IMPRESSION: 1. No fracture visualized regarding the right humerus. 2. Soft tissue edema. Punctate and polygonal opacities which may be external, though correlate to exclude foreign bodies.
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
--- NOTE | 2017-09-23 23:52 | DI ---
EXAM: XR Right Shoulder Complete, 2 or More Views CLINICAL HISTORY: ITS.REASON TRAUMA Physician Notes: Tech Comments: TECHNIQUE: Single frontal view of the right shoulder is provided. COMPARISON: No relevant prior studies available. FINDINGS: Bones/joints: No definitive fracture or dislocation on the provided image. Soft tissues: Extensive soft tissue edema along the lateral shoulder and upper extremity. Punctate and polygonal opacities likely representing foreign bodies, possibly external. Surgical sutures overlying the rightward neck. IMPRESSION: No obvious fracture or malalignment on single frontal view of the right shoulder. Opacities involving the soft tissues may be external. Correlate to exclude foreign bodies.
--- NOTE | 2017-09-23 23:54 | DI ---
EXAM: XR Left Shoulder Complete, 2 or More Views CLINICAL HISTORY: ITS.REASON trauma Physician Notes: Tech Comments: TECHNIQUE: Single frontal view of the left shoulder is provided. COMPARISON: No relevant prior studies available. FINDINGS: Bones/joints: No definitive radiographic evidence for fracture or dislocation on single frontal view of the shoulder. Soft tissues: Mild soft tissue edema. Subtle punctate opacities within the left axillary region. IMPRESSION: 1. No fracture or malalignment identified on single frontal view of the left shoulder. 2. Punctate opacities in the left axillary region, possibly related to calcifications or external debris. Correlate to exclude foreign bodies.
--- NOTE | 2017-09-23 23:56 | DI ---
EXAM: XR Pelvis, 1 or 2 Views CLINICAL HISTORY: ITS.REASON Trauma Physician Notes: Tech Comments: TECHNIQUE: Frontal view of the pelvis. COMPARISON: No relevant prior studies available. FINDINGS: Bones/joints: Unremarkable. No acute fracture. No dislocation. Soft tissues: Unremarkable. IMPRESSION: No acute radiographic findings.
[2017-09-24] MEDS ORDERED: HYDROmorphone 2 MG/1 ML IVP PRN (00:33)
[2017-09-24] MEDS ORDERED: LIDOCAINE W/ SODIUM BICARB 0.5 ML SYR SUBD PRN (00:33)
[2017-09-24] MEDS ORDERED: CALCIUM CARBONATE 500 MG (TUMS) CHEWABLE TABLET PO PRN (00:33)
[2017-09-24] MEDS: ONDANSETRON 4 MG/2 ML VIAL IVP PRN ×3 (01:05→17:59)
[2017-09-24] MEDS: D5-1/2NS + 20mEq KCL 1,000 ML PRIMARY IV SCH ×2 (01:36→20:50)
[2017-09-24] MEDS: HYDROmorphone 2 MG/1 ML IVP PRN ×4 (02:55→11:48)
[2017-09-24] MEDS: KETOROLAC 15 MG/1 ML VIAL IVP PRN ×3 (04:22→19:00)
[2017-09-24] MEDS: Acetaminophen 1000mg Inj 1,000 MG/100 ML VIAL IV PRN ×2 (05:16→15:19)
[2017-09-24] MEDS ORDERED: LIDOCAINE HCL 2 % 10 ML JELLY URO-JECT TOPICAL PRN (05:25)
[2017-09-24] MEDS: LEVOTHYROXINE 125 MCG TABLET PO SCH (06:39)
[2017-09-24] MEDS: FAMOTIDINE 20 MG TABLET PO SCH ×2 (09:05→20:48)
[2017-09-24] MEDS: HYDROCHLOROTHIAZIDE 25 MG TABLET PO SCH (09:05)
[2017-09-24] MEDS: Tolterodine LA Cap 4 MG CAP PO SCH ×2 (09:05→09:16)
[2017-09-24] MEDS: GABAPENTIN 300 MG CAPSULE PO SCH ×3 (09:05→20:48)
[2017-09-24] MEDS: buPROPion XL Tab 150 MG TAB PO SCH (09:05)
[2017-09-24] MEDS: ESTRADIOL 2 MG PO SCH (10:22)
[2017-09-24] MEDS: Non-Formulary Drug (Venlafaxine Hcl [Venlafaxine Hcl Er] 150 MG) PO SCH (10:22)
[2017-09-24] MEDS ORDERED: NALOXONE 0.4 MG/1 ML VIAL IVP PRN (11:40)
[2017-09-24] MEDS ORDERED: HYDROmorphone/PF/PCA 9 MG/30 ML IV SCH (11:45)
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
[2017-09-24] MEDS ORDERED: Bacitracin Oint 14.2 gm tube 14 APPLIC/14.2 GM TUBE TOPICAL SCH (15:00)
[2017-09-24] MEDS: Bacitracin Oint 14.2 gm tube 14 APPLIC/14.2 GM TUBE TOPICAL SCH (15:38)
[2017-09-24] MEDS: QUEtiapine Tab 100 MG TAB PO SCH (20:47)
[2017-09-24] MEDS: ClonazePAM Tab 1 MG TABLET PO SCH (20:48)
[2017-09-25] MEDS: LEVOTHYROXINE 125 MCG TABLET PO SCH (04:55)
[2017-09-25] MEDS ORDERED: Bacitracin Oint 14.2 gm tube 14 APPLIC/14.2 GM TUBE TOPICAL SCH (09:00)
[2017-09-25] MEDS: Non-Formulary Drug (Venlafaxine Hcl [Venlafaxine Hcl Er] 150 MG) PO SCH (09:39)
[2017-09-25] MEDS: ESTRADIOL 2 MG PO SCH (09:39)
[2017-09-25] MEDS: buPROPion XL Tab 150 MG TAB PO SCH (09:40)
[2017-09-25] MEDS: HYDROCHLOROTHIAZIDE 25 MG TABLET PO SCH (09:40)
[2017-09-25] MEDS: FAMOTIDINE 20 MG TABLET PO SCH ×2 (09:40→20:38)
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
[2017-09-25] MEDS: oxyCODONE/APAP 7.5/325 Tab 1 TAB TAB PO PRN ×4 (11:31→23:57)
[2017-09-25] MEDS: KETOROLAC 15 MG/1 ML VIAL IVP PRN ×2 (14:49→20:38)
[2017-09-25] MEDS: HYDROmorphone 2 MG/1 ML IVP PRN (14:49)
[2017-09-25] MEDS: Bacitracin Oint 14.2 gm tube 14 APPLIC/14.2 GM TUBE TOPICAL SCH (14:50)
[2017-09-25] MEDS: QUEtiapine Tab 100 MG TAB PO SCH (20:38)
[2017-09-25] MEDS: ClonazePAM Tab 1 MG TABLET PO SCH (20:38)
[2017-09-25] MEDS: GABAPENTIN 300 MG CAPSULE PO SCH (20:38)
[2017-09-25] MEDS: DOCUSATE 100 MG CAPSULE PO PRN (20:38)
[2017-09-26] MEDS: KETOROLAC 15 MG/1 ML VIAL IVP PRN (04:32)
[2017-09-26] MEDS: LEVOTHYROXINE 125 MCG TABLET PO SCH (04:32)
[2017-09-26] MEDS: oxyCODONE/APAP 7.5/325 Tab 1 TAB TAB PO PRN ×2 (04:32→11:17)
[2017-09-26] MEDS: HYDROCHLOROTHIAZIDE 25 MG TABLET PO SCH (09:49)
[2017-09-26] MEDS: DOCUSATE 100 MG CAPSULE PO PRN (09:49)
[2017-09-26] MEDS: buPROPion XL Tab 150 MG TAB PO SCH (09:49)
[2017-09-26] MEDS: FAMOTIDINE 20 MG TABLET PO SCH (09:49)
[2017-09-26] MEDS: Non-Formulary Drug (Venlafaxine Hcl [Venlafaxine Hcl Er] 150 MG) PO SCH (09:53)
[2017-09-26] MEDS: ESTRADIOL 2 MG PO SCH (09:53)
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
[2017-09-26 12:21] VITALS: BP 138/82; RESP 16; TEMP 97; O2SAT 91
[2017-09-26] MEDS: Bacitracin Oint 14.2 gm tube 14 APPLIC/14.2 GM TUBE TOPICAL SCH (13:15)
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
--- NOTE | 2017-09-26 16:55 | OT.PROG ---
Progress Note Progress Note: Occupational Therapy: S: pt stated that she was feeling dizzy but doing okay. O: pt completed bed mobility and completed transfer from supine to EOB with MOD VCs and MIN A for stability. pt completed functional ambulation x 150' with CGA for safety and MIN VCs to slowing down and directions. pt completed toilet transfer with MOD A for stability. pt completed all toileting tasks and hygiene independently. pt completed functional transfer from toilet to supine in bed with CGA and MIN A for LE positioning. A: pt tolerated session well. pt needs CGA for all mobility for safety. P: continue POC
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
== END 2017-09-26 14:53 | disposition home or self-care (01) | DRG 605 ==
LOC: ER 20:52 → ICU 09-24 00:35 → MED/SURG 09-24 13:27
PROVIDERS: ADMIT Surgery; ATTEND Surgery